=== PATIENT | male | born 1975 | race Two or more races ===

== ENCOUNTER 2025-03-14 18:12 | Emergency (ER) | payer MEDICAID, SELFPAY ==
[2025-03-14 18:34] VITALS: BP 131/99; PULSE 138; RESP 19; TEMP 36.9; O2SAT 96
--- NOTE | 2025-03-14 19:00 | PC.NURSE ---
PT WAS RELEASED FROM POLICE CUSTODY AND HE WAS TAKEN TO THE LOBBY WHERE HE CHOSE TO LEAVE.
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
--- NOTE | 2025-03-14 19:14 | EKG_ITS ---
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
[2025-03-14 19:15] VITALS: BMI 20.5
[2025-03-14 19:31] LABS: Basophils # (Auto) 0.1 Thou/mm3 (0.0-0.2); Basophils % (Auto) 1 % (0-2.5); Eosinophils % (Auto) 0 % (0-10); Hematocrit 45.2 % (41.0-53.0); Hemoglobin 16.1 g/dL (13.5-16.0); Immature Granulocytes % (Auto) 0 % (0-0); Immature Granulocytes Auto 0.01 Thou/mm3 (0.00-0.00); Lymphocytes # (Auto) 2.3 Thou/mm3 (1.0-4.8); Lymphocytes % (Auto) 34 % (10-50); Mean Corpuscular HGB Conc 35.6 g/dl (31.0-37.0); Mean Corpuscular Hemoglobin 30.9 pg (25.0-35.0); Mean Corpuscular Volume 87 fL (80-100); Monocytes # (Auto) 0.2 Thou/mm3 (0.0-0.8); Monocytes % (Auto) 3 % (0-12); Neutrophils # (Auto) 4.2 Thou/mm3 (1.8-7.7); Neutrophils % (Auto) 62 % (37-80); Nucleated Red Blood Cell % 0 /100 WBC (0); Platelet Count 292 Thou/mm3 (140-440); RDW Standard Deviation 43.5 fL (35.1-43.9); Red Blood Count 5.21 Miln/mm3 (4.50-5.90); White Blood Count 6.7 Thou/mm3 (3.8-10.6)
[2025-03-14 20:04] LABS: Alanine Aminotransferase 64 U/L (10-49); Albumin/Globulin Ratio 1.7 (1.2-2.2); Alkaline Phosphatase 128 U/L (46-116); Amylase 121 U/L (30-118); Anion Gap 14 (7-16); Aspartate Amino Transferase 94 U/L (0-34); BUN/Creatinine Ratio 13 Ratio (12-20); Bilirubin,Direct 0.3 mg/dL (0.0-0.3); Blood Urea Nitrogen 10 mg/dL (9-23); Calcium 8.5 mg/dL (8.3-10.6); Calcium (Corrected) 8.5 mg/dL (8.5-10.1); Carbon Dioxide 25.1 mMol/L (20.0-31.0); Chloride 101 mMol/L (98-107); Creatinine (Component) 0.8 mg/dL (0.6-1.3); Estimated Creatinine Clearance 86.9 mL/min (>60); Globulin 2.9 gm/dL (2.3-3.5); Glucose 116 mg/dL (74-106); Lipase 57 U/L (12-53); Magnesium 2.3 mg/dL (1.6-2.6); Osmolality,Calculated 279 (275-295); Potassium 4.1 mMol/L (3.4-5.1); Sodium 140 mMol/L (136-145); Total Protein 7.9 gm/dL (5.7-8.2); Troponin I < 0.020 ng/mL (0.0-0.045); eGFR > 60 See Note
== END 2025-03-14 19:15 | disposition left against medical advice (07) ==
PROVIDERS: Emergency Provider Emergency Medicine
DX: Z02.89 Encounter for other administrative examinations (principal); F10.129 Alcohol abuse with intoxication, unspecified; Y90.8 Blood alcohol level of 240 mg/100 ml or more
CPT/HCPCS: 36415; 80053; 80307; 80320; 82150; 82248; 83690; 83735; 84484; 85025; 93005; 99281; G0480

== ENCOUNTER 2025-05-29 20:46 | Emergency (ER) | payer MEDICAID, SELFPAY ==
[2025-05-29 20:47] VITALS: BP 141/91; PULSE 78; RESP 18; TEMP 36.9; O2SAT 98
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
[2025-05-29 21:18] VITALS: PULSE 92; O2SAT 96
[2025-05-30] MEDS: SODIUM CHLORIDE 0.9% 1000 ML 1,000 ML 999 ML IV (00:12)
[2025-05-30] MEDS: THIAMINE INJ 100 MG/ML VIAL 2 ML IVP (00:13)
[2025-05-30] MEDS: FOLIC ACID INJ 1 MG/0.2 ML IVP (00:13)
[2025-05-30 01:39] VITALS: BP 145/67; PULSE 78; RESP 18; TEMP 36.7
== END 2025-05-30 01:41 | disposition home or self-care (01) ==
DX: F10.129 Alcohol abuse with intoxication, unspecified (principal); R07.89 Other chest pain; Y09 Assault by unspecified means
CPT/HCPCS: 71110; 96374; 96375; 99283; J3411; J3490; J7030

== ENCOUNTER 2025-06-06 13:54 | Emergency (ER) | payer MEDICAID, SELFPAY ==
[2025-06-06 13:59] VITALS: BMI 25.4
[2025-06-06 14:04] VITALS: BP 144/96; PULSE 132; RESP 16; TEMP 37.1; O2SAT 96
--- NOTE | 2025-06-06 14:07 | EKG_ITS ---
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
--- NOTE | 2025-06-06 14:07 | XR_ITS ---
Examination: PA chest single view TECHNIQUE: Upright PA chest single view Date and time: June 06, 2025 1422 hours INDICATIONS: Chest pain today. FINDINGS: Normal heart size Lungs are clear. The osseous structures are intact. IMPRESSION: No active disease.
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
[2025-06-06 14:19] LABS: Collection Type, Urine Clean Catch; Squamous Epithelial Cell,Urine 0 /hpf (0-5)
[2025-06-06 14:37] LABS: Amphetamine/Methamp Scrn,U Negative (Negative); Barbiturate Screen,Urine Negative (Negative); Benzodiazepines Screen,Urine Negative (Negative); Benzoylecgonine Screen, Ur Negative (Negative); Fentanyl Screen,Urine Negative (Negative); Opiate Screen,Urine Negative (Negative); THC Screen,Urine Negative (Negative)
[2025-06-06 15:08] VITALS: BP 146/89; PULSE 114; RESP 18; O2SAT 98
[2025-06-06 15:18] LABS: Bilirubin,Urine Negative (Negative); Blood,Urine 1+ (Negative); Clarity,Urine Clear (Clear/Hazy); Color,Urine Lt-Yellow (Lt Yel-Yel); Culture Indicated,Urine Not Indicated; Glucose, Urine Negative (Negative); Ketones,Urine Negative (Negative); Leukocyte Esterase,Urine Negative (Negative); Nitrite,Urine Negative (Negative); PH,Urine 6.5 (5.0-7.0); Protein,Urine 2+ (Neg - Trace); RBC,Urine < 1 /hpf (0-3); Specific Gravity,Urine 1.010 (1.001-1.035); Urobilinogen,Urine Negative mg/dL (0.0-1.0); WBC,Urine < 1 /hpf (0-5)
[2025-06-06 15:24] VITALS: BP 137/90; PULSE 110; RESP 12; TEMP 36.8; O2SAT 96
[2025-06-06 15:43] LABS: Basophils # (Auto) 0.0 Thou/mm3 (0.0-0.2); Basophils % (Auto) 1 % (0-2.5); Eosinophils # (Auto) 0.0 Thou/mm3 (0.0-0.5); Eosinophils % (Auto) 0 % (0-10); Hematocrit 38.7 % (41.0-53.0); Hemoglobin 13.7 g/dL (13.5-16.0); Immature Granulocytes Auto 0.01 Thou/mm3 (0.00-0.00); Lymphocytes # (Auto) 0.8 Thou/mm3 (1.0-4.8); Lymphocytes % (Auto) 16 % (10-50); Mean Corpuscular HGB Conc 35.4 g/dl (31.0-37.0); Mean Corpuscular Hemoglobin 31.1 pg (25.0-35.0); Mean Corpuscular Volume 88 fL (80-100); Monocytes # (Auto) 0.3 Thou/mm3 (0.0-0.8); Monocytes % (Auto) 5 % (0-12); Neutrophils # (Auto) 4.2 Thou/mm3 (1.8-7.7); Neutrophils % (Auto) 78 % (37-80); Nucleated Red Blood Cell # 0.00 Thou/mm3 (0.00-0.00); Nucleated Red Blood Cell % 0 /100 WBC (0); Platelet Count 129 Thou/mm3 (140-440); RDW Standard Deviation 45.1 fL (35.1-43.9); Red Blood Count 4.40 Miln/mm3 (4.50-5.90); White Blood Count 5.3 Thou/mm3 (3.8-10.6)
[2025-06-06 15:55] LABS: B-Type Natriuretic Peptide < 20 pg/mL (0-100)
[2025-06-06 16:18] LABS: Alanine Aminotransferase 79 U/L (10-49); Albumin, Serum 4.6 gm/dL (3.5-5.0); Albumin/Globulin Ratio 1.6 (1.2-2.2); Alcohol, Blood Medical 382.5 mg/dL (0-10.0); Alkaline Phosphatase 112 U/L (46-116); Anion Gap 17 (7-16); Aspartate Amino Transferase 125 U/L (0-34); BUN/Creatinine Ratio 10 Ratio (12-20); Bilirubin,Total 1.2 mg/dL (0.3-1.2); Blood Urea Nitrogen 6 mg/dL (9-23); Calcium 9.0 mg/dL (8.3-10.6); Calcium (Corrected) 9.0 mg/dL (8.5-10.1); Carbon Dioxide 26.2 mMol/L (20.0-31.0); Chloride 95 mMol/L (98-107); Creatinine (Component) 0.6 mg/dL (0.6-1.3); Estimated Creatinine Clearance 111.4 mL/min (>60); Globulin 2.8 gm/dL (2.3-3.5); Glucose 120 mg/dL (74-106); Lipase 58 U/L (12-53); Magnesium 1.8 mg/dL (1.6-2.6); Osmolality,Calculated 274 (275-295); Potassium 3.3 mMol/L (3.4-5.1); Sodium 138 mMol/L (136-145); Total Protein 7.4 gm/dL (5.7-8.2); Troponin I 0.033 ng/mL (0.0-0.045); eGFR > 60 See Note
== END 2025-06-06 15:52 ==
PROVIDERS: Physician Assistant Medical; Emergency Provider Family Medicine
DX: Z02.89 Encounter for other administrative examinations (principal); F10.129 Alcohol abuse with intoxication, unspecified; Y90.9 Presence of alcohol in blood, level not specified
CPT/HCPCS: 36415; 71045; 80053; 80307; 80320; 81001; 83690; 83735; 83880; 84484; 85025; 93005; 99283; G0480

== ENCOUNTER 2025-06-20 15:14 | Inpatient (IN) | payer MEDICAID, SELFPAY ==
[2025-06-20 15:17] VITALS: BP 127/89; PULSE 115; RESP 20; TEMP 36.9; O2SAT 96
[2025-06-20 15:21] VITALS: PULSE 115; RESP 18; O2SAT 97
--- NOTE | 2025-06-20 15:21 | PC.NURSE ---
PT BROUGHT IN BY EMS FOR VOMITING AND ALCOHOL INTOXICATION. PT NOTED TO HAVE BRUISING TO LEFT SIDE UPPER ABD AND LEFT SHOULDER. PT STATES THAT HE WAS DRINKING ALOT OF ALCOHOL AND FELL. PT NOTED TO BE INTOXICATED AT THIS TIME. PT STATES THAT HE ONLY HAD 3 BEERS. PT PLACED ON CC MONITOR.
--- NOTE | 2025-06-20 16:04 | PD.EDNV ---
Nausea/Vomit./Diarrhea-RME/HPI General Chief complaint: Nausea/Vomiting/Diarrhea Stated complaint: VOMITING Time Seen by Provider: 06/20/25 15:55 Arrival date/time: 06/20/25 15:14 RME / HPI RME / HPI Narrative: 49 year old male with history of alcohol use disorder presents [facility] ED [facility] for evaluation of abdominal pain that is accompanied by nausea and vomiting. Patient additionally reports at baseline he drinks daily. However, in the last 5 days is drinking more than his usual. No other complaints reported. Related Data Previous Rx's ?Medication ?Instructions ?Recorded folic acid 1 mg tablet 1 mg PO QDAY #30 tabs 06/27/25 thiamine HCl (vitamin B1) 100 mg 100 mg PO QDAY #30 caps 06/27/25 capsule cyclobenzaprine 10 mg tablet 10 mg PO TID PRN muscle spasm 10 06/29/25 days #30 tab-caps ibuprofen 600 mg tablet 600 mg PO Q6H #30 tabs 06/29/25 Allergies Allergy/AdvReac Type Severity Reaction Status Date / Time No Known Allergies Allergy Unverified 06/21/25 09:14 Review of Systems Review of Systems Systems Reviewed: All systems reviewed, normal except as documented Past Medical History Past Medical History CARDIAC: Negative Congestive Heart Failure RESPIRATORY: Negative Chronic Obstructive Pulmonary Disease (COPD) GENITOURINARY: Negative Renal Disease ENDOCRINE: Negative Diabetes Mellitus Type 1 or Diabetes Mellitus Type 2 Social History SMOKING STATUS: Never smoker ED Exam Narrative Physical exam: GENERAL APPEARANCE: well-developed, well-nourished, appears intoxicated, there is food vomit on the front of his clothing, no evidence of blood or coffee grounds HEENT: Normocephalic, atraumatic; pupils equal, round, reactive to light; EOMI; mucous membranes pink, moist; oropharynx clear NECK: Supple LUNGS: CTABL; no wheezes, no rales, no rhonchi HEART: Regular rate, regular rhythm; normal S1, S2; no murmurs ABDOMEN: non distended; normal BS; soft, no tenderness, no guarding, no rebound; no masses, no organomegaly, no hernia BACK: no CVA tenderness EXTREMITIES: atraumatic; no edema NEUROLOGIC: awake; alert and oriented; cranial nerves II-XII grossly intact PSYCHIATRIC: appropriate mood and affect SKIN: warm, dry, normal color; no rashes Course Quality Measures none Orders Category Date Time Status Patient Condition Routine Admission 06/21/25 09:[address] in Observation Status Routine Admission 06/21/25 09:08 Active 24 HR Medical Restraints Q2HR Care 06/23/25 18:06 Completed Activity as Tolerated Routine Care 06/21/25 09:09 Ordered Psychologist Developmental Q4H START 00 Care 06/20/25 16:11 Completed Continuous Pulse Oximetry NOW Care 06/21/25 09:07 Completed EKG (ED ONLY) *Do not use* NOW Care 06/20/25 16:11 Completed Miscellaneous Nursing Order NOW Care 06/23/25 19:09 Completed Notify provider NEEDED Care 06/21/25 09:07 Completed SCD [Sequential Compression Device] QSHIFT Care 06/23/25 07:25 Completed Saline [Insert IV] NOW Care 06/20/25 18:44 Completed Seizure precautions NEEDED Care 06/21/25 09:09 Completed Referral Physical Therapy Routine Cons 06/24/25 16:20 Completed Referral Wound Care Routine Cons 06/21/25 14:53 Active Diet Clear Liquid Diet 06/21/25 Lunch Completed Diet Regular Diet 06/22/25 Lunch Active EKG (ED Only) Stat Exams 06/20/25 16:11 Draft Alcohol, Blood Medical Stat Lab 06/20/25 16:34 Completed Alcohol, Blood Medical Stat Lab 06/20/25 19:30 Completed Alcohol, Blood Medical Stat Lab 06/21/25 05:55 Completed Amylase Stat Lab 06/20/25 19:30 Completed BMP [Basic Metabolic Panel] Stat Lab 06/20/25 19:30 Completed BMP [Basic Metabolic Panel] Stat Lab 06/21/25 05:55 Completed Bilirubin,Total Stat Lab 06/20/25 19:30 Completed CBC AM DRAW Lab 06/22/25 04:31 Completed CBC AM DRAW Lab 06/23/25 05:00 Completed CBC AM DRAW Lab 06/24/25 04:56 Completed CBC AM DRAW Lab 06/25/25 05:59 Completed CBC AM DRAW Lab 06/26/25 05:20 Completed CBC AM DRAW Lab 06/27/25 05:09 Completed CBC Stat Lab 06/20/25 16:34 Completed CMP [Comprehensive Metabolic Panel] AM DRAW Lab 06/25/25 05:59 Completed CMP [Comprehensive Metabolic Panel] AM DRAW Lab 06/26/25 05:20 Completed CMP [Comprehensive Metabolic Panel] AM DRAW Lab 06/27/25 05:09 Completed Comprehensive Metabolic Panel AM DRAW Lab 06/22/25 04:31 Completed Comprehensive Metabolic Panel AM DRAW Lab 06/23/25 05:00 Completed Comprehensive Metabolic Panel AM DRAW Lab 06/24/25 04:56 Completed Comprehensive Metabolic Panel Stat Lab 06/20/25 16:34 Completed Drug Screen,Urine Stat Lab 06/20/25 18:02 Completed Ferritin Routine Lab 06/23/25 05:00 Completed Iron Panel Routine Lab 06/22/25 04:31 Completed Lipase Stat Lab 06/20/25 16:34 Completed Lipid Panel AM DRAW Lab 06/22/25 04:31 Completed Magnesium AM DRAW Lab 06/22/25 04:31 Completed Magnesium AM DRAW Lab 06/23/25 05:00 Completed Magnesium AM DRAW Lab 06/24/25 04:56 Completed Magnesium AM DRAW Lab 06/25/25 05:59 Completed Magnesium AM DRAW Lab 06/26/25 05:20 Completed Magnesium AM DRAW Lab 06/27/25 05:09 Completed Magnesium Stat Lab 06/20/25 16:34 Completed PT [Prothrombin Time with INR] Stat Lab 06/20/25 19:30 Completed PTT [Partial Thromboplastin Time] Stat Lab 06/20/25 19:30 Completed Phosphorous AM DRAW Lab 06/22/25 04:31 Completed Phosphorous AM DRAW Lab 06/23/25 05:00 Completed Phosphorous AM DRAW Lab 06/24/25 04:56 Completed Phosphorous AM DRAW Lab 06/25/25 05:59 Completed Phosphorous AM DRAW Lab 06/26/25 05:20 Completed Phosphorous AM DRAW Lab 06/27/25 05:09 Completed Renal Function Panel Routine Lab 06/21/25 18:30 Completed Renal Function Panel Routine Lab 06/22/25 19:37 Completed Renal Function Panel Routine Lab 06/23/25 13:50 Completed Renal Function Panel Routine Lab 06/24/25 17:00 Completed Renal Function Panel Urgent Lab 06/21/25 09:53 Completed Renal Function Panel Urgent Lab 06/21/25 14:04 Completed Troponin I Stat Lab 06/20/25 16:34 Completed UA, C/S IF [Urinalysis, C/S if Indicated] Stat Lab 06/20/25 18:02 Completed Vitamin B12 Routine Lab 06/22/25 04:31 Completed Acetaminophen Tab [Tylenol Tab] Med 06/23/25 07:28 Discontinued 325 mg PO X1 ONE Balsam [place] Oil [Venelex Oint] Med 06/21/25 21:00 Discontinued See Dose Instructions TOP BID Diazepam Inj [Valium Inj] Med 06/23/25 19:05 Discontinued 10 mg IVP Q2HR PRN CIWA SCORE 15-19 CIWA SCORE 15-19 Diazepam Inj [Valium Inj] Med 06/20/25 18:45 Discontinued 10 mg IVP X1 ONE Diazepam Inj [Valium Inj] Med 06/21/25 05:14 Discontinued 10 mg IVP X1 ONE Diazepam Inj [Valium Inj] Med 06/23/25 19:11 Discontinued 20 mg IVP Q2H PRN Diazepam Inj [Valium Inj] Med 06/21/25 09:07 Discontinued 5 mg IVP Q2HR PRN Diazepam Inj [Valium Inj] Med 06/21/25 09:15 Discontinued 5 mg IVP Q2HR PRN Diazepam Inj [Valium Inj] Med 06/22/25 17:04 Discontinued 5 mg IVP Q2HR PRN CIWA SCORE 15-19 CIWA SCORE 15-19 Heparin Inj Med 06/21/25 21:00 Discontinued 5,000 unit SC Q12HR Heparin Inj Med 06/21/25 14:00 Discontinued 5,000 unit SC Q8HR Heparin Inj Med 06/24/25 07:30 Discontinued 5,000 unit SC Q8HR KCL 10% Liq UDC 15 ML Med 06/20/25 18:44 Discontinued 40 meq PO X1 ONE KCL 10% Liq UDC 15 ML Med 06/20/25 22:44 Discontinued 40 meq PO X1 ONE LORazepam [Ativan] Med 06/21/25 09:07 Discontinued 0.5 mg PO Q4HR PRN LORazepam [Ativan] Med 06/21/25 09:07 Discontinued 1 mg PO Q4HR PRN LORazepam [Ativan] Med 06/21/25 09:07 Discontinued 2 mg PO Q4HR PRN LORazepam [Ativan] Med 06/22/25 17:04 Discontinued 2 mg PO Q4HR PRN Magnesium Sulfate 2 GM Ivpb [Magnesium Sulfate Ivpb] Med 06/24/25 07:21 Discontinued 2 gm in 50 ml IV X1 Magnesium Sulfate 4 GM Ivpb [Magnesium Sulfate Ivpb] Med 06/22/25 07:46 Discontinued 4 gm in 50 ml IV X1 Magnesium Sulfate 4 GM Ivpb [Magnesium Sulfate Ivpb] Med 06/23/25 07:45 Discontinued 4 gm in 50 ml IV X1 Magnesium Sulfate 4 GM Ivpb [Magnesium Sulfate Ivpb] Med 06/25/25 08:13 Discontinued 4 gm in 50 ml IV X1 Melatonin Med 06/21/25 21:00 Discontinued 3 mg PO HS Melatonin Med 06/23/25 21:00 Discontinued 6 mg PO HS Metoclopramide Inj [Reglan Inj] Med 06/21/25 09:07 Discontinued 10 mg IVP Q6H PRN Morphine Inj Med 06/20/25 16:12 Discontinued 5 mg IVP X1 ONE Multivitamin. Med 06/22/25 09:00 Discontinued 1 tab PO QDAY Ondansetron Inj [Zofran Inj] Med 06/20/25 16:12 Discontinued 4 mg IVP X1 ONE PHENobarbital Inj 130 mg Med 06/24/25 07:30 Discontinued Sodium Chloride 0.9% Flush [NS Flush] 12 ml IVP Q6HR PHENobarbital Inj 130 mg Med 06/25/25 14:00 Discontinued Sodium Chloride 0.9% Flush [NS Flush] 12 ml IVP TID PHENobarbital Inj 550 mg Med 06/23/25 19:15 Discontinued Sodium Chloride 0.9% [Ns] 50 ml IV X1 PHENobarbital Inj 550 mg Med 06/23/25 19:07 Discontinued Sodium Chloride 0.9% Flush [NS Flush] 250 ml IV X1 POTASSIUM CHL 10 mEq IVPB [Kcl Ivpb] Med 06/20/25 17:50 Discontinued 10 meq in 100 ml IV Q1H POTASSIUM CHL 10 mEq IVPB [Kcl Ivpb] Med 06/24/25 07:22 Discontinued 10 meq in 100 ml IV Q1H Pantoprazole Inj [Protonix Inj] Med 06/25/25 09:00 Discontinued 40 mg IVP QDAY Pantoprazole Inj [Protonix Inj] Med 06/20/25 16:13 Discontinued 80 mg IVP X1 ONE Potassium Chloride [K-Dur] Med 06/22/25 07:47 Discontinued 20 meq PO X1 ONE Potassium Chloride [K-Dur] Med 06/21/25 15:52 Discontinued 40 meq PO X1 ONE Potassium Chloride [K-Dur] Med 06/23/25 07:26 Discontinued 40 meq PO X1 ONE Ringers Lactated 1000 ml [Lactated Ringers] 1,000 ml Med 06/20/25 18:45 Discontinued IV 1,000 mls/hr Ringers Lactated 1000 ml [Lactated Ringers] 1,000 ml Med 06/20/25 21:38 Discontinued IV 1,000 mls/hr Ringers Lactated 1000 ml [Lactated Ringers] 1,000 ml Med 06/21/25 00:46 Discontinued IV 200 mls/hr Ringers Lactated 1000 ml [Lactated Ringers] 1,000 ml Med 06/21/25 09:15 Discontinued IV 75 mls/hr Sodium Chloride 0.45 % [Ns 0.45%] 1,000 ml Med 06/24/25 07:21 Discontinued Pot Chl Additive [KCl Additive] 40 meq IV 100 mls/hr Sodium Chloride 0.9% 1000 ml [Ns] 1,000 ml Med 06/22/25 07:45 Discontinued IV 100 mls/hr Sodium Chloride 0.9% 1000 ml [Ns] 1,000 ml Med 06/23/25 07:27 Discontinued IV 100 mls/hr Sodium Chloride 0.9% 1000 ml [Ns] 1,000 ml Med 06/20/25 16:12 Discontinued IV 999 mls/hr Thiamine Inj [Vitamin B-1 Inj] Med 06/20/25 18:44 Discontinued 100 mg IVP X1 ONE Thiamine Inj [Vitamin B-1 Inj] 500 mg Med 06/23/25 22:00 Discontinued Sodium Chloride 0.9% [Ns] 100 ml IV TID Thiamine [Vitamin B-1] Med 06/22/25 09:00 Discontinued 100 mg PO QDAY chlordiazePOXIDE HCl [Librium] Med 06/22/25 09:00 Discontinued 25 mg PO Q6HR chlordiazePOXIDE HCl [Librium] Med 06/22/25 14:00 Discontinued 25 mg PO TID Code Status Routine Oth 06/21/25 09:07 Completed Late Tray Request Routine Oth 06/21/25 13:13 Active EKG (RT) Urgent RT 06/22/25 12:27 Draft [facility] Equity Referral - Knowledge Deficit Routine SS 06/21/25 14:48 Active Transfer Order Routine Transfer 06/23/25 18:39 Completed Transfer Order Routine Transfer 06/24/25 09:58 Completed Vital Signs Vital signs: Vital Signs Temperature 98.5 F 06/20/25 15:17 Pulse Rate 115 H 06/20/25 15:17 Respiratory Rate 20 06/20/25 15:17 Blood Pressure 127/89 H 06/20/25 15:17 Pulse Oximetry (%) 96 06/20/25 15:17 Oxygen Delivery Method Room Air 06/20/25 15:17 Pulse ox is 96% on room air which is adequate. Nausea/Vomiting/Diarrhea MDM Narrative MDM Narrative:: Juliet Yost am scribing for and in the presence of Dr. Morales. 1800: Signed out to Dr. Rees pending reassessment and final disposition. Patient data External records reviewed:: EMS form Clinical information provided by:: patient and EMS Social determinants that could affect healthcare access:: alcohol use Patient has the following chronic illnesses:: Alcohol use disorder How is presenting disease/condition affected by chronic disease/condition?: exacerbated by Evaluation data The following diagnostics were reviewed and interpreted by me:: lab results and EKG tracing(s) (NSR, rate 96, no acute ischemic changes ) Lab and/or radiology exams considered but not ordered:: None Interpretation Summary: As noted above Medications / Prescriptions Medications / Prescriptions considered but not ordered:: None Medication administrations:: Medication Administration History Discontinued Medications Acetaminophen (Acetaminophen 325 Mg Tablet) 325 mg PO X1 ONE Stop: 06/23/25 07:29 Last Admin: 06/23/25 09:16 Dose: 325 mg Documented By: CLIF Balsam [place] Oil (Balsam [place] Oil (Venelex) 60 Gm Tube) 0 gm TOP BID VIVIANA Stop: 07/21/25 20:59 Last Admin: 06/27/25 08:46 Dose: 1 applicatio Documented By: Admin: 06/26/25 20:19 Dose: 1 applicatio Documented By: Admin: 06/26/25 08:26 Dose: 1 applicatio Documented By: Admin: 06/25/25 20:55 Dose: 1 applicatio Documented By: Admin: 06/25/25 14:13 Dose: 1 applicatio Documented By: Admin: 06/24/25 20:10 Dose: 1 applicatio Documented By: Admin: 06/24/25 08:02 Dose: 1 applicatio Documented By: Admin: 06/23/25 21:54 Dose: 1 applicatio Documented By: Admin: 06/23/25 10:33 Dose: 1 applicatio Documented By: Admin: 06/22/25 20:45 Dose: 1 applicatio Documented By: Admin: 06/22/25 08:00 Dose: 1 applicatio Documented By: Admin: 06/21/25 20:15 Dose: 1 applicatio Documented By: TED Chlordiazepoxide HCl (Chlordiazepoxide Hcl 25 Mg Capsule) 25 mg PO Q6HR [facility]NA Stop: 06/27/25 08:59 Last Admin: 06/22/25 09:57 Dose: 25 mg Documented By: MR Chlordiazepoxide HCl (Chlordiazepoxide Hcl 25 Mg Capsule) 25 mg PO TID VIVIANA Stop: 06/27/25 13:59 Last Admin: 06/23/25 15:33 Dose: 25 mg Documented By: Admin: 06/23/25 05:33 Dose: 25 mg Documented By: Admin: 06/22/25 20:45 Dose: 25 mg Documented By: Admin: 06/22/25 14:00 Dose: 25 mg Documented By: MR Phenobarbital Sodium 550 mg/ (Sodium Chloride 250 ml) 0 mg IV X1 ONE Stop: 06/23/25 19:08 Last Admin: 06/23/25 20:31 Dose: Not Given Documented By: VALDEMAR Non-Admin Reason: Discontinued Phenobarbital Sodium 130 mg/ (Sodium Chloride 12 ml) 0 mg IVP Q6HR [facility]NA Stop: 07/08/25 07:29 Last Admin: 06/25/25 06:20 Dose: 130 mg Documented By: Admin: 06/24/25 23:27 Dose: 130 mg Documented By: Admin: 06/24/25 18:37 Dose: 130 mg Documented By: SC Admin: 06/24/25 13:31 Dose: 130 mg Documented By: SC Admin: 06/24/25 07:46 Dose: 130 mg Documented By: DESTINEY Phenobarbital Sodium 130 mg/ (Sodium Chloride 12 ml) 0 mg IVP TID VIVIANA Stop: 07/09/25 13:59 Last Admin: 06/26/25 05:47 Dose: Not Given Documented By: BILL Non-Admin Reason: Other, see note Comments: CIWA Score is currently a 3 and Patient is awake alert and easily arousable; MD Sam notified, 0600 dose held Admin: 06/25/25 22:17 Dose: 130 mg Documented By: Admin: 06/25/25 15:24 Dose: Not Given Documented By: MGD Non-Admin Reason: lethargic Phenobarbital Sodium 130 mg/ (Sodium Chloride 12 ml) 0 mg IVP X1 ONE Stop: 06/25/25 15:44 Last Admin: 06/25/25 19:01 Dose: Not Given Documented By: MGD Non-Admin Reason: lethargic Phenobarbital Sodium 130 mg/ (Sodium Chloride 12 ml) 0 mg IVP BID VIVIANA Stop: 07/10/25 08:59 Last Admin: 06/26/25 20:15 Dose: 130 mg Documented By: Admin: 06/26/25 08:11 Dose: 130 mg Documented By: NANI Diazepam (Diazepam Inj 5 Mg/Ml Vial 2 Ml) 10 mg IVP X1 ONE Stop: 06/20/25 18:46 Last Admin: 06/20/25 22:36 Dose: Not Given Documented By: WO Non-Admin Reason: Patient Asleep Diazepam (Diazepam Inj 5 Mg/Ml Vial 2 Ml) 10 mg IVP X1 ONE Stop: 06/21/25 05:15 Last Admin: 06/21/25 05:51 Dose: 10 mg Documented By: ANIKA Diazepam (Diazepam Inj 5 Mg/Ml Vial 2 Ml) 5 mg IVP Q2HR PRN PRN Reason: CIWA SCORE 16-19 Stop: 06/26/25 09:06 Diazepam (Diazepam Inj 5 Mg/Ml Vial 2 Ml) 5 mg IVP Q2HR PRN PRN Reason: CIWA SCORE 16-19 Stop: 06/26/25 09:06 Diazepam (Diazepam Inj 5 Mg/Ml Vial 2 Ml) 5 mg IVP Q2HR PRN PRN Reason: CIWA SCORE 15-19 Stop: 06/26/25 09:06 Last Admin: 06/23/25 16:16 Dose: 5 mg Documented By: Admin: 06/23/25 05:33 Dose: 5 mg Documented By: Admin: 06/23/25 02:00 Dose: 5 mg Documented By: Admin: 06/22/25 23:51 Dose: 5 mg Documented By: Admin: 06/22/25 19:19 Dose: 5 mg Documented By: MORALES Comments: TIERNEY 15 Admin: 06/22/25 17:17 Dose: 5 mg Documented By: Diazepam (Diazepam Inj 5 Mg/Ml Vial 2 Ml) 10 mg IVP Q2HR PRN PRN Reason: CIWA SCORE 15-19 Stop: 06/26/25 09:06 Diazepam (Diazepam Inj 5 Mg/Ml Vial 2 Ml) 20 mg IVP Q2H PRN PRN Reason: CIWA >20 Stop: 06/28/25 19:10 Last Admin: 06/24/25 08:24 Dose: 20 mg Documented By: Admin: 06/24/25 01:08 Dose: 20 mg Documented By: Admin: 06/23/25 22:40 Dose: 20 mg Documented By: Admin: 06/23/25 20:37 Dose: 20 mg Documented By: VALDEMAR Heparin Sodium (Porcine) (Heparin Sod Inj 5000 Unit/Ml Vial) 5,000 unit SC Q8HR [facility] Stop: 07/05/25 13:59 Last Admin: 06/24/25 06:56 Dose: Not Given Documented By: DESTINEY Non-Admin Reason: Discontinued Heparin Sodium (Porcine) (Heparin Sod Inj 5000 Unit/Ml Vial) 5,000 unit SC Q12HR [facility] Stop: 07/05/25 20:59 Last Admin: 06/23/25 21:52 Dose: 5,000 unit Documented By: VALDEMAR Co-signed By: Admin: 06/23/25 08:07 Dose: 5,000 unit Documented By: PP Co-signed By: ISABEL Admin: 06/22/25 20:45 Dose: Not Given Documented By: MORALES Non-Admin Reason: Patient Refused Admin: 06/22/25 08:00 Dose: 5,000 unit Documented By: Co-signed By: Admin: 06/21/25 20:15 Dose: 5,000 unit Documented By: TED Co-signed By: MORALES Heparin Sodium (Porcine) (Heparin Sod Inj 5000 Unit/Ml Vial) 5,000 unit SC Q8HR [facility] Stop: 07/08/25 07:29 Last Admin: 06/26/25 05:52 Dose: 5,000 unit Documented By: BILL Co-signed By: FELIZ Admin: 06/25/25 22:18 Dose: 5,000 unit Documented By: BILL Co-signed By: FELIZ Admin: 06/25/25 14:09 Dose: 5,000 unit Documented By: EDITA Co-signed By: XIYAA Admin: 06/25/25 06:19 Dose: 5,000 unit Documented By: BILL Co-signed By: SD Admin: 06/24/25 21:25 Dose: 5,000 unit Documented By: HV Co-signed By: IG Admin: 06/24/25 13:45 Dose: 5,000 unit Documented By: SC Co-signed By: RIP Admin: 06/24/25 07:40 Dose: 5,000 unit Documented By: DESTINEY Co-signed By: (2) Heparin Sodium (Porcine) (Heparin Sod Inj 5000 Unit/Ml Vial) 5,000 unit SC Q12HR [facility] Stop: 07/10/25 20:59 Last Admin: 06/27/25 08:45 Dose: 5,000 unit Documented By: RASHEED Co-signed By: Admin: 06/26/25 20:15 Dose: 5,000 unit Documented By: ANNA Co-signed By: MELINA Sodium Chloride (Ns) 1,000 mls @ 999 mls/hr IV .Q1H1M ONE Stop: 06/20/25 17:12 Last Infusion: 06/20/25 19:00 Dose: Infused Documented By: Admin: 06/20/25 17:04 Dose: 999 mls/hr Documented By: ED Potassium Chloride (Kcl Ivpb) 10 meq in 100 mls @ 100 mls/hr IV Q1H [facility] Stop: 06/20/25 21:49 Last Infusion: 06/20/25 23:19 Dose: Infused Documented By: Admin: 06/20/25 22:10 Dose: 100 mls/hr Documented By: Infusion: 06/20/25 22:08 Dose: Infused Documented By: Admin: 06/20/25 21:08 Dose: 100 mls/hr Documented By: Infusion: 06/20/25 21:08 Dose: Infused Documented By: Admin: 06/20/25 20:01 Dose: 80 mls/hr Documented By: Infusion: 06/20/25 19:59 Dose: Infused Documented By: Admin: 06/20/25 18:44 Dose: 80 mls/hr Documented By: MARINO Lactated Ringer's (Lactated Ringers) 1,000 mls @ 1,000 mls/hr IV .Q1H ONE Stop: 06/20/25 19:44 Last Infusion: 06/20/25 20:12 Dose: Infused Documented By: Admin: 06/20/25 19:12 Dose: 1,000 mls/hr Documented By: LILIAM Lactated Ringer's (Lactated Ringers) 1,000 mls @ 1,000 mls/hr IV .Q1H ONE Stop: 06/20/25 22:37 Last Infusion: 06/20/25 23:15 Dose: Infused Documented By: Admin: 06/20/25 22:11 Dose: 1,000 mls/hr Documented By: LILIAM Lactated Ringer's (Lactated Ringers) 1,000 mls @ 200 mls/hr IV .Q5H ONE Stop: 06/21/25 05:45 Last Infusion: 06/21/25 05:53 Dose: Infused Documented By: Admin: 06/21/25 00:53 Dose: 200 mls/hr Documented By: LILIAM Lactated Ringer's (Lactated Ringers) 1,000 mls @ 75 mls/hr IV .[id number] [facility] Stop: 07/21/25 09:14 Last Admin: 06/23/25 01:53 Dose: 75 mls/hr Documented By: Infusion: 06/23/25 01:53 Dose: Infused Documented By: Admin: 06/22/25 12:50 Dose: 75 mls/hr Documented By: Infusion: 06/22/25 12:50 Dose: Infused Documented By: Admin: 06/21/25 23:30 Dose: 75 mls/hr Documented By: Infusion: 06/21/25 22:42 Dose: Infused Documented By: Admin: 06/21/25 09:22 Dose: 75 mls/hr Documented By: LEONORA Sodium Chloride (Ns) 1,000 mls @ 100 mls/hr IV .Q10H [facility] Stop: 07/22/25 07:44 Last Admin: 06/23/25 22:43 Dose: Not Given Documented By: VALDEMAR Non-Admin Reason: Discontinued Magnesium Sulfate (Magnesium Sulfate Ivpb) 4 gm in 50 mls @ 12.5 mls/hr IV X1 ONE Stop: 06/22/25 11:45 Last Admin: 06/22/25 07:57 Dose: 12.5 mls/hr Documented By: Magnesium Sulfate (Magnesium Sulfate Ivpb) 4 gm in 50 mls @ 12.5 mls/hr IV X1 ONE Stop: 06/23/25 11:44 Last Admin: 06/23/25 08:08 Dose: 12.5 mls/hr Documented By: CLIF Sodium Chloride (Ns) 1,000 mls @ 100 mls/hr IV .Q10H [facility] Stop: 07/23/25 07:26 Last Admin: 06/24/25 04:30 Dose: 100 mls/hr Documented By: Infusion: 06/24/25 04:30 Dose: Infused Documented By: Admin: 06/23/25 19:53 Dose: 100 mls/hr Documented By: Infusion: 06/23/25 19:53 Dose: Infused Documented By: Admin: 06/23/25 10:33 Dose: 100 mls/hr Documented By: CLIF Thiamine HCl 500 mg/ Sodium (Chloride) 105 mls @ 210 mls/hr IV TID VIVIANA Stop: 07/23/25 21:59 Last Admin: 06/26/25 05:52 Dose: 210 mls/hr Documented By: Infusion: 06/25/25 22:46 Dose: Infused Documented By: Admin: 06/25/25 22:16 Dose: 210 mls/hr Documented By: Infusion: 06/25/25 14:39 Dose: Infused Documented By: Admin: 06/25/25 14:09 Dose: 210 mls/hr Documented By: Infusion: 06/25/25 06:50 Dose: Infused Documented By: Admin: 06/25/25 06:20 Dose: 210 mls/hr Documented By: Infusion: 06/24/25 21:55 Dose: Infused Documented By: Admin: 06/24/25 21:25 Dose: 210 mls/hr Documented By: Infusion: 06/24/25 14:15 Dose: Infused Documented By: Admin: 06/24/25 13:45 Dose: 210 mls/hr Documented By: SC Infusion: 06/24/25 06:15 Dose: Infused Documented By: SC Admin: 06/24/25 05:45 Dose: 210 mls/hr Documented By: Infusion: 06/23/25 22:24 Dose: Infused Documented By: Admin: 06/23/25 21:54 Dose: 210 mls/hr Documented By: VALDEMAR Phenobarbital Sodium 550 mg/ (Sodium Chloride) 54.2308 mls @ 325.385 mls/hr IV X1 ONE Stop: 06/23/25 19:24 Last Admin: 06/23/25 19:54 Dose: 325.385 mls/hr Documented By: VALDEMAR Magnesium Sulfate (Magnesium Sulfate Ivpb) 2 gm in 50 mls @ 25 mls/hr IV X1 ONE Stop: 06/24/25 09:20 Last Admin: 06/24/25 07:42 Dose: 25 mls/hr Documented By: DESTINEY Potassium Chloride 40 meq/ (Sodium Chloride) 1,020 mls @ 100 mls/hr IV .[id number] [facility] Stop: 07/24/25 07:20 Last Admin: 06/26/25 12:27 Dose: 100 mls/hr Documented By: Infusion: 06/26/25 12:27 Dose: Infused Documented By: Admin: 06/26/25 02:45 Dose: 100 mls/hr Documented By: Infusion: 06/26/25 02:06 Dose: Infused Documented By: Admin: 06/25/25 15:54 Dose: 100 mls/hr Documented By: MGAngela Infusion: 06/25/25 15:54 Dose: Infused Documented By: Admin: 06/25/25 07:17 Dose: 100 mls/hr Documented By: Infusion: 06/25/25 06:22 Dose: Infused Documented By: Admin: 06/24/25 20:10 Dose: 100 mls/hr Documented By: Infusion: 06/24/25 19:20 Dose: Infused Documented By: Admin: 06/24/25 09:08 Dose: 100 mls/hr Documented By: DESTINEY Comments: Given late 2/T unavailability. Potassium Chloride (Kcl Ivpb) 10 meq in 100 mls @ 100 mls/hr IV Q1H VIVIANA Stop: 06/24/25 11:21 Last Admin: 06/24/25 10:52 Dose: 100 mls/hr Documented By: Infusion: 06/24/25 10:52 Dose: Infused Documented By: Admin: 06/24/25 09:50 Dose: 100 mls/hr Documented By: Infusion: 06/24/25 09:50 Dose: Infused Documented By: Admin: 06/24/25 08:46 Dose: 100 mls/hr Documented By: Infusion: 06/24/25 08:46 Dose: Infused Documented By: Admin: 06/24/25 07:42 Dose: 100 mls/hr Documented By: DESTINEY Magnesium Sulfate (Magnesium Sulfate Ivpb) 4 gm in 50 mls @ 12.5 mls/hr IV X1 ONE Stop: 06/25/25 12:12 Last Admin: 06/25/25 10:43 Dose: 12.5 mls/hr Documented By: EDITA Magnesium Sulfate (Magnesium Sulfate Ivpb) 4 gm in 50 mls @ 12.5 mls/hr IV X1 ONE Stop: 06/26/25 11:42 Last Admin: 06/26/25 08:12 Dose: 12.5 mls/hr Documented By: NANI Thiamine HCl 500 mg/ Sodium (Chloride) 105 mls @ 210 mls/hr IV TID [facility] Stop: 07/23/25 21:59 Last Admin: 06/27/25 05:05 Dose: 210 mls/hr Documented By: Infusion: 06/26/25 21:42 Dose: Infused Documented By: Admin: 06/26/25 21:12 Dose: 210 mls/hr Documented By: Infusion: 06/26/25 15:10 Dose: Infused Documented By: Admin: 06/26/25 14:40 Dose: 210 mls/hr Documented By: NANI Lactated Ringer's (Lactated Ringers) 1,000 mls @ 85 mls/hr IV .[id number] [facility] Stop: 06/27/25 14:12 Last Admin: 06/27/25 03:47 Dose: 85 mls/hr Documented By: Infusion: 06/27/25 03:20 Dose: Infused Documented By: Admin: 06/26/25 15:34 Dose: 85 mls/hr Documented By: NANI Magnesium Sulfate (Magnesium Sulfate Ivpb) 2 gm in 50 mls @ 25 mls/hr IV X1 ONE Stop: 06/27/25 09:52 Last Admin: 06/27/25 08:45 Dose: 25 mls/hr Documented By: RASHEED Lorazepam (Lorazepam 0.5 Mg Tablet) 0.5 mg PO Q4HR PRN PRN Reason: CIWA Score 2-6 Stop: 06/26/25 09:06 Last Admin: 06/22/25 00:35 Dose: 0.5 mg Documented By: TED Lorazepam (Lorazepam 0.5 Mg Tablet) 1 mg PO Q4HR PRN PRN Reason: CIWA SCORE 7-11 Stop: 06/26/25 09:06 Last Admin: 06/23/25 09:16 Dose: 1 mg Documented By: Admin: 06/22/25 21:48 Dose: 1 mg Documented By: Admin: 06/22/25 12:25 Dose: 1 mg Documented By: Admin: 06/21/25 20:15 Dose: 1 mg Documented By: Admin: 06/21/25 14:42 Dose: 1 mg Documented By: Admin: 06/21/25 10:47 Dose: 1 mg Documented By: LEONORA Comments: TIERNEY 9 Lorazepam (Lorazepam 0.5 Mg Tablet) 2 mg PO Q4HR PRN PRN Reason: CIWA SCORE 12-15 Stop: 06/26/25 09:06 Last Admin: 06/22/25 15:27 Dose: 2 mg Documented By: Admin: 06/22/25 08:48 Dose: 2 mg Documented By: Lorazepam (Lorazepam 0.5 Mg Tablet) 2 mg PO Q4HR PRN PRN Reason: CIWA SCORE 12-14 Stop: 06/26/25 09:06 Last Admin: 06/23/25 12:37 Dose: 2 mg Documented By: Admin: 06/23/25 03:56 Dose: 2 mg Documented By: MORALES Melatonin (Melatonin 3 Mg Tablet) 3 mg PO HS VIVIANA Stop: 07/21/25 20:59 Last Admin: 06/22/25 20:45 Dose: 3 mg Documented By: Admin: 06/21/25 20:15 Dose: 3 mg Documented By: TED Melatonin (Melatonin 3 Mg Tablet) 6 mg PO HS VIVIANA Stop: 07/23/25 20:59 Metoclopramide HCl (Metoclopramide Inj 5 Mg/Ml Vial 2 Ml) 10 mg IVP Q6H PRN; Protocol PRN Reason: NAUSEA OR VOMITING Stop: 07/21/25 09:06 Last Admin: 06/23/25 09:16 Dose: 10 mg Documented By: Admin: 06/22/25 14:00 Dose: 10 mg Documented By: Admin: 06/21/25 20:21 Dose: 10 mg Documented By: Admin: 06/21/25 10:48 Dose: 10 mg Documented By: LEONORA Morphine Sulfate (Morphine Sulf Inj 10 Mg/Ml Vial) 5 mg IVP X1 ONE Stop: 06/20/25 16:13 Last Admin: 06/20/25 16:20 Dose: Not Given Documented By: DO Non-Admin Reason: Cancelled by Provider Multivitamins (Multivitamins Tablet) 1 tab PO QDAY VIVIANA Stop: 07/22/25 08:59 Last Admin: 06/27/25 08:45 Dose: 1 tab Documented By: Admin: 06/26/25 08:12 Dose: 1 tab Documented By: Admin: 06/25/25 08:12 Dose: 1 tab Documented By: Admin: 06/24/25 08:26 Dose: 1 tab Documented By: Admin: 06/23/25 08:08 Dose: 1 tab Documented By: Admin: 06/22/25 08:00 Dose: 1 tab Documented By: Ondansetron HCl (Ondansetron Inj 2 Mg/Ml Inj 2 Ml) 4 mg IVP X1 ONE Stop: 06/20/25 16:13 Last Admin: 06/20/25 16:59 Dose: 4 mg Documented By: CRYSTAL Pantoprazole Sodium (Pantoprazole Inj 40 Mg Vial) 80 mg IVP X1 ONE Stop: 06/20/25 16:14 Last Admin: 06/20/25 17:01 Dose: 80 mg Documented By: CRYSTAL Pantoprazole Sodium (Pantoprazole Inj 40 Mg Vial) 40 mg IVP QDAY VIVIANA Stop: 07/25/25 08:59 Last Admin: 06/27/25 08:45 Dose: 40 mg Documented By: Admin: 06/26/25 08:11 Dose: 40 mg Documented By: Admin: 06/25/25 08:12 Dose: 40 mg Documented By: EDITA Potassium Chloride (Potassium Chloride 10% 20 Meq/15 Ml Udc) 40 meq PO X1 ONE Stop: 06/20/25 18:45 Last Admin: 06/20/25 19:11 Dose: 40 meq Documented By: LILIAM Potassium Chloride (Potassium Chloride 10% 20 Meq/15 Ml Udc) 40 meq PO X1 ONE Stop: 06/20/25 22:45 Last Admin: 06/20/25 23:02 Dose: Not Given Documented By: WO Non-Admin Reason: Discontinued Potassium Chloride (Potassium Chloride 20 Meq Tabcr) 40 meq PO X1 ONE Stop: 06/21/25 15:53 Last Admin: 06/21/25 16:15 Dose: 40 meq Documented By: LT Potassium Chloride (Potassium Chloride 20 Meq Tabcr) 20 meq PO X1 ONE Stop: 06/22/25 07:48 Last Admin: 06/22/25 07:57 Dose: 20 meq Documented By: MR Potassium Chloride (Potassium Chloride 20 Meq Tabcr) 40 meq PO X1 ONE Stop: 06/23/25 07:27 Last Admin: 06/23/25 08:08 Dose: 40 meq Documented By: PP Thiamine HCl (Thiamine Inj 100 Mg/Ml Vial 2 Ml) 100 mg IVP X1 ONE Stop: 06/20/25 18:45 Last Admin: 06/20/25 19:11 Dose: 100 mg Documented By: LILIAM Thiamine HCl (Thiamine 100 Mg Tablet) 100 mg PO QDAY VIVIANA Stop: 07/22/25 08:59 Last Admin: 06/23/25 08:08 Dose: 100 mg Documented By: Admin: 06/22/25 08:00 Dose: 100 mg Documented By: MR See above Consultations Consultation(s) initiated? (list below): No Diagnosis Nausea Differential Diagnosis: food poisoning, gastroenteritis, drug-induced nausea and vomiting and dehydration Most likely diagnosis given after review of the tests above:: Alcohol intoxication Admission Indicated Admission indicated?: not indicated Explain why admission is indicated or not indicated:: Signed out pending final dispo Admission Request Was there a request for admission?: No Disposition Plan Disposition Plan: other (specify) (signed out to Dr. Rees ) Discharge Plan Plan Patient condition on transfer: Stable Problem List Clinical Impression: Alcohol intoxication, Hypokalemia Discharge Order Discharge Orders: Discharge (Routine); Ordered 06/27/25 Ordered By: Sindy Navarro
--- NOTE | 2025-06-20 16:11 | EKG_ITS ---
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
[2025-06-20 16:49] LABS: Basophils # (Auto) 0.0 Thou/mm3 (0.0-0.2); Basophils % (Auto) 0 % (0-2.5); Eosinophils # (Auto) 0.0 Thou/mm3 (0.0-0.5); Eosinophils % (Auto) 0 % (0-10); Hematocrit 35.6 % (41.0-53.0); Hemoglobin 13.0 g/dL (13.5-16.0); Immature Granulocytes Auto 0.03 Thou/mm3 (0.00-0.00); Lymphocytes # (Auto) 1.2 Thou/mm3 (1.0-4.8); Lymphocytes % (Auto) 18 % (10-50); Mean Corpuscular HGB Conc 36.5 g/dl (31.0-37.0); Mean Corpuscular Hemoglobin 31.9 pg (25.0-35.0); Mean Corpuscular Volume 87 fL (80-100); Monocytes # (Auto) 0.7 Thou/mm3 (0.0-0.8); Monocytes % (Auto) 11 % (0-12); Neutrophils # (Auto) 4.8 Thou/mm3 (1.8-7.7); Neutrophils % (Auto) 71 % (37-80); Nucleated Red Blood Cell # 0.00 Thou/mm3 (0.00-0.00); Nucleated Red Blood Cell % 0 /100 WBC (0); Platelet Count 119 Thou/mm3 (140-440); RDW Standard Deviation 48.1 fL (35.1-43.9); Red Blood Count 4.08 Miln/mm3 (4.50-5.90); White Blood Count 6.7 Thou/mm3 (3.8-10.6)
[2025-06-20] MEDS: ONDANSETRON INJ 2 MG/ML INJ 2 ML 4 MG IVP (16:59)
[2025-06-20] MEDS: SODIUM CHLORIDE 0.9% 1000 ML 1,000 ML 999 ML IV (17:04)
[2025-06-20 17:22] LABS: Alanine Aminotransferase 121 U/L (10-49); Albumin, Serum 4.2 gm/dL (3.5-5.0); Albumin/Globulin Ratio 1.6 (1.2-2.2); Alkaline Phosphatase 136 U/L (46-116); Anion Gap 13 (7-16); Aspartate Amino Transferase 174 U/L (0-34); BUN/Creatinine Ratio 9 Ratio (12-20); Bilirubin,Total 1.2 mg/dL (0.3-1.2); Blood Urea Nitrogen 6 mg/dL (9-23); Calcium 8.7 mg/dL (8.3-10.6); Calcium (Corrected) 8.7 mg/dL (8.5-10.1); Carbon Dioxide 31.1 mMol/L (20.0-31.0); Chloride 86 mMol/L (98-107); Creatinine (Component) 0.7 mg/dL (0.6-1.3); Globulin 2.7 gm/dL (2.3-3.5); Glucose 171 mg/dL (74-106); Lipase 76 U/L (12-53); Magnesium 1.9 mg/dL (1.6-2.6); Osmolality,Calculated 262 (275-295); Potassium 3.0 mMol/L (3.4-5.1); Sodium 130 mMol/L (136-145); Total Protein 6.9 gm/dL (5.7-8.2); Troponin I 0.042 ng/mL (0.0-0.045); eGFR > 60 See Note
[2025-06-20 17:26] LABS: Alcohol, Blood Medical 588.7 mg/dL (0-10.0)
[2025-06-20 17:47] VITALS: BP 104/65; PULSE 88; RESP 18; TEMP 37.4; O2SAT 99
[2025-06-20 18:10] LABS: Collection Type, Urine Clean Catch; Squamous Epithelial Cell,Urine 0 /hpf (0-5)
[2025-06-20 18:22] LABS: Amphetamine/Methamp Scrn,U Negative (Negative); Barbiturate Screen,Urine Negative (Negative); Benzodiazepines Screen,Urine Negative (Negative); Benzoylecgonine Screen, Ur Negative (Negative); Fentanyl Screen,Urine Negative (Negative); Opiate Screen,Urine Negative (Negative); THC Screen,Urine Negative (Negative)
[2025-06-20 18:24] LABS: Bacteria,Urine Rare; Bilirubin,Urine Negative (Negative); Blood,Urine Trace (Negative); Clarity,Urine Clear (Clear/Hazy); Color,Urine Lt-Yellow (Lt Yel-Yel); Culture Indicated,Urine Not Indicated; Glucose, Urine Negative (Negative); Ketones,Urine Negative (Negative); Leukocyte Esterase,Urine Negative (Negative); Nitrite,Urine Negative (Negative); PH,Urine 6.5 (5.0-7.0); Protein,Urine Trace (Neg - Trace); RBC,Urine 1 /hpf (0-3); Specific Gravity,Urine 1.007 (1.001-1.035); Urobilinogen,Urine Negative mg/dL (0.0-1.0); WBC,Urine 1 /hpf (0-5)
--- NOTE | 2025-06-20 18:27 | PD.EDADDENDU ---
Emergency Room Addendum <Margot Mace - Last Filed: 06/21/25 01:45> Addendum Narrative: I took over the care from Dr. Morales at 6 PM on 06/20/2025, see her notes for complete H&P and ED course. I reviewed all diagnostic test results. At 6 AM on 06/21/2025, the care of the patient was transferred to Dr. Morales. During my watch, the patient remained stable. <Art Rees MD - Last Filed: 06/21/25 01:49> Addendum Narrative: I took over the care from Dr. Morales at 6 PM on 06/20/2025, see her notes for complete H&P and ED course. I reviewed all diagnostic test results. My interpretation of the EKG: NSR (96 bpm) with no ST-T changes. Blood and urine test remarkable for alcohol 588.7, K 3.0, and LFT elevation. Treatment here included: IV fluid Zofran Thiamine KCl At 6 AM on 06/21/2025, the care of the patient was transferred to Dr. Morales. During my watch, the patient remained stable. Art Rees MD
[2025-06-20] MEDS: POTASSIUM CHL 10 mEq IVPB 10 MEQ/100 ML BAG 80 MEQ IV ×2 (18:44→20:01)
[2025-06-20] MEDS: POTASSIUM CHLORIDE 10% 20 MEQ/15 ML UDC 40 MEQ PO (19:11)
[2025-06-20] MEDS: THIAMINE INJ 100 MG/ML VIAL 2 ML IVP (19:11)
[2025-06-20] MEDS: RINGERS LACTATED 1000 ML 1,000 ML IV ×2 (19:12→22:11)
[2025-06-20 19:28] VITALS: BP 131/87; PULSE 111; RESP 19; TEMP 36.6; O2SAT 96
[2025-06-20 19:39] VITALS: PULSE 91
[2025-06-20 20:32] LABS: INR 1.0 (0.9-1.3); Partial Thromboplastin Time 28.3 Seconds (22.0-36.0); Prothrombin Time 10.9 Seconds (9.0-12.2)
[2025-06-20 20:47] LABS: Amylase 128 U/L (30-118); Bilirubin,Total 1.0 mg/dL (0.3-1.2)
[2025-06-20] MEDS: POTASSIUM CHL 10 mEq IVPB 10 MEQ/100 ML BAG 100 MEQ IV ×2 (21:08→22:10)
[2025-06-20 21:13] VITALS: BMI 25.4
[2025-06-20 21:47] VITALS: BP 111/74; PULSE 100; RESP 18; TEMP 37.3; O2SAT 95
[2025-06-20 22:20] LABS: Anion Gap 13 (7-16); BUN/Creatinine Ratio 10 Ratio (12-20); Blood Urea Nitrogen 6 mg/dL (9-23); Calcium 7.4 mg/dL (8.3-10.6); Carbon Dioxide 27.6 mMol/L (20.0-31.0); Chloride 96 mMol/L (98-107); Creatinine (Component) 0.6 mg/dL (0.6-1.3); Estimated Creatinine Clearance 111.4 mL/min (>60); Glucose 91 mg/dL (74-106); Osmolality,Calculated 271 (275-295); Potassium 3.2 mMol/L (3.4-5.1); Sodium 137 mMol/L (136-145); eGFR > 60 See Note
[2025-06-20 22:29] LABS: Alcohol, Blood Medical 399.9 mg/dL (0-10.0)
[2025-06-21] VITALS (8 sets, daily range): BP systolic 100–135; BP diastolic 68–84; PULSE 85–110; RESP 14–20; TEMP 36.4–37.6; O2SAT 92–98
[2025-06-21] MEDS: RINGERS LACTATED 1000 ML 1,000 ML 200 ML IV (00:53)
[2025-06-21] MEDS: DIAZEPAM INJ 5 MG/ML VIAL 2 ML 10 MG IVP (05:51)
[2025-06-21 07:27] LABS: Alcohol, Blood Medical 196.8 mg/dL (0-10.0); Anion Gap 10 (7-16); BUN/Creatinine Ratio 8 Ratio (12-20); Blood Urea Nitrogen < 5 mg/dL (9-23); Calcium 8.1 mg/dL (8.3-10.6); Carbon Dioxide 29.8 mMol/L (20.0-31.0); Chloride 98 mMol/L (98-107); Creatinine (Component) 0.6 mg/dL (0.6-1.3); Estimated Creatinine Clearance 111.4 mL/min (>60); Glucose 85 mg/dL (74-106); Osmolality,Calculated 271 (275-295); Potassium 2.9 mMol/L (3.4-5.1); Sodium 138 mMol/L (136-145); eGFR > 60 See Note
[2025-06-21] MEDS: RINGERS LACTATED 1000 ML 1,000 ML 75 ML IV ×2 (09:22→23:30)
[2025-06-21] MEDS: METOCLOPRAMIDE INJ 5 MG/ML VIAL 2 ML 10 MG IVP ×2 (10:48→20:21)
[2025-06-21 10:50] LABS: Albumin, Serum 3.5 gm/dL (3.5-5.0); Anion Gap 12 (7-16); BUN/Creatinine Ratio 8 Ratio (12-20); Blood Urea Nitrogen < 5 mg/dL (9-23); Calcium 8.4 mg/dL (8.3-10.6); Calcium (Corrected) 8.8 mg/dL (8.5-10.1); Carbon Dioxide 29.1 mMol/L (20.0-31.0); Chloride 96 mMol/L (98-107); Creatinine (Component) 0.6 mg/dL (0.6-1.3); Estimated Creatinine Clearance 111.4 mL/min (>60); Glucose 114 mg/dL (74-106); Osmolality,Calculated 272 (275-295); Phosphorous 2.8 mg/dL (2.4-5.1); Potassium 2.8 mMol/L (3.4-5.1); Sodium 137 mMol/L (136-145); eGFR > 60 See Note
--- NOTE | 2025-06-21 11:35 | PD.EDADDENDU ---
Emergency Room Addendum Addendum Narrative: 0600: Care assumed from Dr. Rees, the previous shift emergency physician. Past medical, surgical, social and family history reviewed. Vitals and home medications reviewed. I will assume the care of the patient at this time, pending final disposition. Please refer to the emergency department record for history and examination from initial visit.?The following addendum documentation note is intended to reflect any pending information, findings, or radiology results not included in the patient?s initial chart. I spoke with resident Dr. Hayes working with Dr. Pascual. Discussed patients PMHx, HPI, ED course, exam findings, labs, and radiology results. The hospitalist agree to accept the patient for admission.
--- NOTE | 2025-06-21 13:06 | ESHP_ITS ---
<Statement entered by Narcisa Hayes MD - 06/21/25 14:27> Mr. Bryan is a 49-year-old male with no past medical history presented to the ED with nausea/vomiting for the last 24 hours after binge drinking for the last 5 days. Patient alludes to only drinking many beers daily for the last few days. Physical exam is positive for bilateral tremors and unsteady gait. Patient's labs significant for urine alcohol level of 588 now 196 with low potassium of 2.9. Patient was given Valium in the ED along with potassium and fluid resuscitation. Patient will be admitted to med/tele for further management of hypokalemia and alcohol intoxication versus withdrawal. Patient will be placed on CIWA protocol and will consider adding Librium/gabapentin. Will encourage p.o. intake including fluids. I discussed with and supervised the audit intern physician who took care of this patient. I personally saw and examined the patient and discussed the assessment and plan with the entire medicine team, including my attending Dr. Pascual, I agree with most of the assessment and plan as documented below Narcisa Hayes M.D. PGY-3 Disclaimer: Despite multiple revisions, due to the dictation software being used, the document bellow may not be free of grammatical errors including phonetic/typographic errors. However, this does not deter from our commitment to providing health care in the patient's best interest in mind. Documentation for date of: 06/21/25 HPI History of Present Illness Chief complaint: etoh intoxication vs withdrawl History of present illness: Mr. Bernardo is a 49-year-old gentleman with no significant past medical history he is not have a primary care doctor reports intermittently being seen in the emergency department and urgent care. He presents to the emergency department with alcohol intoxication he was brought in due to public disturbance. He states that he has never been in the hospital for alcohol-related seizures. He states that he had an additional $900 because he had not yet paid bills and went into a 5 to 6-day binge drinking session. He endorses drinking several beers over the past few days. his last drink was a few hours before presenting to the ED yesterday. ROS positive for chills nausea vomiting epigastric abdominal pain, diarrhea, tremors, anxiety ROS negative for fevers, chest pain, shortness of breath, dysuria Patient states that he does not take medications regularly, no PCP. patient states that he works in the [employer]. he lives with his and children in [facility]. ED course Dx Labs significant for urine alcohol 588 now 196, U tox otherwise negative, UA is bland, lipase 76 amylase 128, LFTs elevated, potassium of 3.0 now 2.9 EKG nl sinus Tx Zofran 4 mg IV x1 Diazepam 10 mg IV one-time Thiamine 100 mg x1 Potassium chloride 80 mill equivalents given Normal saline 1 L Lactated Ringer's 3 L Lorazepam 1 mg p.o admitted for managment of hypokalemia and etoh withdrawl Review of Systems Review of Systems Narrative Review of Systems: as per hpi Exam Vital Signs Temp Pulse Resp BP Pulse Ox O2 Del Method 98.1 F 93 16 135/68 H 96 Room Air 06/21/25 10:50 06/21/25 10:50 06/21/25 10:50 06/21/25 10:50 06/21/25 10:50 06/21/25 10:50 Narrative Exam GENERAL: no acute distress, tremulous, AAO x3, laying in bed HEENT: Head AT/ NC. Mucous membranes dry. PERRL. ears are dirty, with crusting noted. tongue wag NECK: Supple, no lymphadenopathy, no carotid bruits. CARDIOVASCULAR: RRR. Normal S1/S2, No m/r/g. No pitting edema of bilateral LEs. RESPIRATORY: CTAB. No wheezing, rhonchi, crackles. GASTROINTESTINAL: Abdomen soft, mildly tender epigastrum no palpable masses. Bowel sounds present RUQ bruise mildly tender to palpation MUSCULOSKELETAL:? No cyanosis or edema, no visible joint swelling. NEUROLOGICAL: CN II-XII grossly intact. No focal deficits. Sensation intact, symmetric. BUE tremulous, with asterixis PSYCHIATRIC: Awake and alert, not agitated, normal mood and affect. (recieved dose of lorazapam) SKIN: No obvious rashes, no jaundice, normal turgor. Results: Labs 06/22/25 04:31 06/22/25 04:31 Labs: Short CBC 06/20/25 Range/Units 16:34 WBC 6.7 (3.8-10.6) Thou/mm3 Hgb 13.0 L (13.5-16.0) g/dL Hct 35.6 L (41.0-53.0) % Plt Count 119 L (140-440) Thou/mm3 BMP 06/20/25 06/20/25 06/21/25 16:34 19:30 05:55 Sodium 130 L 137 138 Potassium 3.0 L 3.2 L 2.9 L Chloride 86 L 96 L 98 Carbon Dioxide 31.1 H 27.6 29.8 BUN 6 L 6 L < 5 L Creatinine 0.7 0.6 0.6 Glucose 171 H 91 D 85 Calcium 8.7 7.4 L 8.1 L 06/21/25 09:53 Sodium 137 Potassium 2.8 L Chloride 96 L Carbon Dioxide 29.1 BUN < 5 L Creatinine 0.6 Glucose 114 H Calcium 8.4 Cardiac Enzymes 06/20/25 Range/Units 16:34 Troponin I 0.042 (0.0-0.045) ng/mL Liver Function 06/20/25 06/20/25 06/21/25 Range/Units 16:34 19:30 09:53 Total Bilirubin 1.2 1.0 (0.3-1.2) mg/dL AST 174 H (0-34) U/L ALT 121 H (10-49) U/L Alkaline Phosphatase 136 H (46-116) U/L Albumin 4.2 3.5 D (3.5-5.0) gm/dL Urine 06/20/25 Range/Units 18:02 Urine Color Lt-Yellow (Lt Yel-Yel) Urine Clarity Clear (Clear/Hazy) Urine pH 6.5 (5.0-7.0) Ur Specific Hayes 1.007 (1.001-1.035) Urine Protein Trace (Neg - Trace) Urine Glucose (UA) Negative (Negative) Quality Measures Quality Measures VTE prophylaxis Medications Home Medications and Allergies Home Medications ?Medication ?Instructions ?Recorded ?Confirmed ?Type No Known Home Medications 06/21/25 0901/10 History Allergies Allergy/AdvReac Type Severity Reaction Status Date / Time No Known Allergies Allergy Unverified 06/21/25 09:14 Visit Medications Diazepam (Diazepam Inj 5 Mg/Ml Vial 2 Ml) 5 mg IVP Q2HR PRN PRN Reason: CIWA SCORE 16-19 Stop: 06/26/25 09:06 Heparin Sodium (Porcine) (Heparin Sod Inj 5000 Unit/Ml Vial) 5,000 unit SC Q8HR [facility] Stop: 07/05/25 13:59 Lactated Ringer's (Lactated Ringers) 1,000 mls @ 75 mls/hr IV .[id number] [facility] Stop: 07/21/25 09:14 Last Admin: 06/21/25 09:22 Dose: 75 mls/hr Lorazepam (Lorazepam 0.5 Mg Tablet) 0.5 mg PO Q4HR PRN PRN Reason: CIWA Score 2-6 Stop: 06/26/25 09:06 Lorazepam (Lorazepam 0.5 Mg Tablet) 1 mg PO Q4HR PRN PRN Reason: CIWA SCORE 7-11 Stop: 06/26/25 09:06 Last Admin: 06/21/25 10:47 Dose: 1 mg Lorazepam (Lorazepam 0.5 Mg Tablet) 2 mg PO Q4HR PRN PRN Reason: CIWA SCORE 12-15 Stop: 06/26/25 09:06 Metoclopramide HCl (Metoclopramide Inj 5 Mg/Ml Vial 2 Ml) 10 mg IVP Q6H PRN; Protocol PRN Reason: NAUSEA OR VOMITING Stop: 07/21/25 09:06 Last Admin: 06/21/25 10:48 Dose: 10 mg Discontinued Medications Diazepam (Diazepam Inj 5 Mg/Ml Vial 2 Ml) 10 mg IVP X1 ONE Stop: 06/20/25 18:46 Last Admin: 06/20/25 22:36 Dose: Not Given Diazepam (Diazepam Inj 5 Mg/Ml Vial 2 Ml) 10 mg IVP X1 ONE Stop: 06/21/25 05:15 Last Admin: 06/21/25 05:51 Dose: 10 mg Diazepam (Diazepam Inj 5 Mg/Ml Vial 2 Ml) 5 mg IVP Q2HR PRN PRN Reason: CIWA SCORE 16-19 Stop: 06/26/25 09:06 Sodium Chloride (Ns) 1,000 mls @ 999 mls/hr IV .Q1H1M ONE Stop: 06/20/25 17:12 Last Infusion: 06/20/25 19:00 Dose: Infused Potassium Chloride (Kcl Ivpb) 10 meq in 100 mls @ 100 mls/hr IV Q1H [facility] Stop: 06/20/25 21:49 Last Infusion: 06/20/25 23:19 Dose: Infused Lactated Ringer's (Lactated Ringers) 1,000 mls @ 1,000 mls/hr IV .Q1H ONE Stop: 06/20/25 19:44 Last Infusion: 06/20/25 20:12 Dose: Infused Lactated Ringer's (Lactated Ringers) 1,000 mls @ 1,000 mls/hr IV .Q1H ONE Stop: 06/20/25 22:37 Last Infusion: 06/20/25 23:15 Dose: Infused Lactated Ringer's (Lactated Ringers) 1,000 mls @ 200 mls/hr IV .Q5H ONE Stop: 06/21/25 05:45 Last Infusion: 06/21/25 05:53 Dose: Infused Morphine Sulfate (Morphine Sulf Inj 10 Mg/Ml Vial) 5 mg IVP X1 ONE Stop: 06/20/25 16:13 Last Admin: 06/20/25 16:20 Dose: Not Given Ondansetron HCl (Ondansetron Inj 2 Mg/Ml Inj 2 Ml) 4 mg IVP X1 ONE Stop: 06/20/25 16:13 Last Admin: 06/20/25 16:59 Dose: 4 mg Pantoprazole Sodium (Pantoprazole Inj 40 Mg Vial) 80 mg IVP X1 ONE Stop: 06/20/25 16:14 Last Admin: 06/20/25 17:01 Dose: 80 mg Potassium Chloride (Potassium Chloride 10% 20 Meq/15 Ml Udc) 40 meq PO X1 ONE Stop: 06/20/25 18:45 Last Admin: 06/20/25 19:11 Dose: 40 meq Potassium Chloride (Potassium Chloride 10% 20 Meq/15 Ml Udc) 40 meq PO X1 ONE Stop: 06/20/25 22:45 Last Admin: 06/20/25 23:02 Dose: Not Given Thiamine HCl (Thiamine Inj 100 Mg/Ml Vial 2 Ml) 100 mg IVP X1 ONE Stop: 06/20/25 18:45 Last Admin: 06/20/25 19:11 Dose: 100 mg Assessment & Plan Plan Mr. Bryan is a 49-year-old gentleman with no significant past medical history he does not have primary care doctor who presented to the ED with alcohol withdrawal (no hx of delerium tremens) who was admitted for etoh withdrawl vs intoxication, CIWA 9 and for managment of hyponatremia 2.9. #EtOH withdrawl vs #EtOH intoxication #EtOH use disorder Last Drink 06/20 No Hx Seizures / DTs Evidence of End-Organ Damage yes with elevated LFTs, lipase pt endorses drinking several beers over the past 5 days, presents with tremors, tongue wag and anxiety, PLAN - Check CMP, INR, Daily BMP+Mg - 1L NS, 100mg thiamine - Daily Thiamine, MVI qd - Insomnia: Melatonin 3mg - CIWA protocol #hypokalemia given total of 80 ME KCl while in the ED, K still low likely low 2/2 poor po intake and GI losses PLAN - follow up PM renal panel - daily cmp #Transaminitis 2/2 EtOH use - CTM LFTs #normocytic anemia - f/u iron panel - B12 pending #thrombocytopenia coag panel wnl Dispo: observation, CIWA protocol Diet: Regular Bowel Reg: not indicated VTE ppx: heparin 5000 GI ppx: protonox Code status: Full Plan discussed with Dr Hayes, and Dr. Ankur Muñoz MD PGY1 Attending Provider Attestation/Addendum I have examined the patient, reviewed labs and imaging findings, discussed the case with the resident(s), and reviewed entered orders. I agree with the plan of care as outlined in this note, with these additional summaries/recommendations: After examination of the patient and review of the clinical data, I feel that this patient needs admission to the hospital for further treatment and evaluation. Patient is a 49-year-old male with a medical history of alcohol use disorder presents to [facility] emergency department on 06/21/2025 with nonspecific complaints of bilateral shaking, nausea/vomiting, and abdominal pain. Patient seen at bedside. Significant bilateral hand tremor present in patient's somnolent and slow to respond. He does not appear to be a good historian at this time. Patient will be started on CIWA for likely alcohol withdrawal. Ethyl alcohol level was significantly elevated on admission although patient's symptoms appear more consistent with alcohol withdrawal time rather than intoxication. Start CIWA protocol. If symptoms worsen we will consider adding Librium. No history of cirrhosis although although patient likely has a component of liver damage from chronic alcohol use. Once mentation is more improved we will investment counselor patient on cessation. Mild hypokalemia and hypocalcemia present, replacement given and follow-up repeat levels. Thrombocytopenia possibly secondary to liver synthetic dysfunction although mild at this time and can be followed up outpatient. vp celebrity services referral once mentation is more improved. Please see residents note for additional details and management. Dr. Ankur MD
[2025-06-21 14:55] LABS: Albumin, Serum 3.6 gm/dL (3.5-5.0); Anion Gap 15 (7-16); BUN/Creatinine Ratio 8 Ratio (12-20); Blood Urea Nitrogen < 5 mg/dL (9-23); Calcium 8.6 mg/dL (8.3-10.6); Calcium (Corrected) 8.9 mg/dL (8.5-10.1); Carbon Dioxide 25.1 mMol/L (20.0-31.0); Chloride 94 mMol/L (98-107); Creatinine (Component) 0.6 mg/dL (0.6-1.3); Estimated Creatinine Clearance 111.4 mL/min (>60); Glucose 133 mg/dL (74-106); Osmolality,Calculated 267 (275-295); Phosphorous 2.9 mg/dL (2.4-5.1); Potassium 2.9 mMol/L (3.4-5.1); Sodium 134 mMol/L (136-145); eGFR > 60 See Note
[2025-06-21 19:10] LABS: Albumin, Serum 3.4 gm/dL (3.5-5.0); Anion Gap 10 (7-16); BUN/Creatinine Ratio 8 Ratio (12-20); Blood Urea Nitrogen < 5 mg/dL (9-23); Calcium 8.3 mg/dL (8.3-10.6); Calcium (Corrected) 8.8 mg/dL (8.5-10.1); Carbon Dioxide 28.2 mMol/L (20.0-31.0); Chloride 92 mMol/L (98-107); Creatinine (Component) 0.6 mg/dL (0.6-1.3); Estimated Creatinine Clearance 111.4 mL/min (>60); Glucose 169 mg/dL (74-106); Osmolality,Calculated 262 (275-295); Phosphorous 2.5 mg/dL (2.4-5.1); Potassium 3.2 mMol/L (3.4-5.1); Sodium 130 mMol/L (136-145); eGFR > 60 See Note
[2025-06-21] MEDS: HEPARIN SOD INJ 5000 UNIT/ML VIAL SC (20:15)
[2025-06-21] MEDS: MELATONIN 3 MG TABLET PO (20:15)
[2025-06-21] MEDS: BALSAM PERU/CASTOR OIL (Venelex) 60 GM TUBE TOP (20:15)
[2025-06-22] VITALS (10 sets, daily range): BP systolic 107–153; BP diastolic 73–92; PULSE 96–137; RESP 13–22; TEMP 36.6–37.6; O2SAT 95–97
--- NOTE | 2025-06-22 04:51 | PC.NURSE ---
[facility]
[2025-06-22 05:41] LABS: Basophils # (Auto) 0.0 Thou/mm3 (0.0-0.2); Basophils % (Auto) 1 % (0-2.5); Eosinophils # (Auto) 0.1 Thou/mm3 (0.0-0.5); Eosinophils % (Auto) 1 % (0-10); Hematocrit 33.1 % (41.0-53.0); Hemoglobin 11.5 g/dL (13.5-16.0); Immature Granulocytes Auto 0.03 Thou/mm3 (0.00-0.00); Lymphocytes # (Auto) 0.5 Thou/mm3 (1.0-4.8); Lymphocytes % (Auto) 10 % (10-50); Mean Corpuscular HGB Conc 34.7 g/dl (31.0-37.0); Mean Corpuscular Hemoglobin 31.8 pg (25.0-35.0); Mean Corpuscular Volume 91 fL (80-100); Monocytes # (Auto) 0.6 Thou/mm3 (0.0-0.8); Monocytes % (Auto) 12 % (0-12); Neutrophils # (Auto) 3.7 Thou/mm3 (1.8-7.7); Neutrophils % (Auto) 76 % (37-80); Nucleated Red Blood Cell # 0.00 Thou/mm3 (0.00-0.00); Nucleated Red Blood Cell % 0 /100 WBC (0); Platelet Count 97 Thou/mm3 (140-440); RDW Standard Deviation 52.4 fL (35.1-43.9); Red Blood Count 3.62 Miln/mm3 (4.50-5.90); White Blood Count 4.9 Thou/mm3 (3.8-10.6)
[2025-06-22 05:53] LABS: Alanine Aminotransferase 86 U/L (10-49); Albumin, Serum 3.5 gm/dL (3.5-5.0); Albumin/Globulin Ratio 1.5 (1.2-2.2); Alkaline Phosphatase 122 U/L (46-116); Anion Gap 13 (7-16); Aspartate Amino Transferase 120 U/L (0-34); BUN/Creatinine Ratio 10 Ratio (12-20); Bilirubin,Total 1.5 mg/dL (0.3-1.2); Blood Urea Nitrogen < 5 mg/dL (9-23); Calcium 9.0 mg/dL (8.3-10.6); Calcium (Corrected) 9.4 mg/dL (8.5-10.1); Carbon Dioxide 25.5 mMol/L (20.0-31.0); Cardiac Risk Estimate 1.8 RATIO (4.0-6.7); Chloride 94 mMol/L (98-107); Cholesterol 147 mg/dL (132-200); Creatinine (Component) 0.5 mg/dL (0.6-1.3); Estimated Creatinine Clearance 133.7 mL/min (>60); Globulin 2.4 gm/dL (2.3-3.5); Glucose 84 mg/dL (74-106); HDL Cholesterol 83 mg/dL (40-60); LDL Cholesterol,Calculated 54 mg/dL (0-130); Magnesium 1.4 mg/dL (1.6-2.6); Osmolality,Calculated 260 (275-295); Phosphorous 2.5 mg/dL (2.4-5.1); Potassium 3.2 mMol/L (3.4-5.1); Sodium 132 mMol/L (136-145); Total Protein 5.9 gm/dL (5.7-8.2); Triglycerides 48 mg/dL (30-150); eGFR > 60 See Note
[2025-06-22 05:55] LABS: Vitamin B12 991 pg/mL (211-911)
[2025-06-22 05:59] LABS: Iron 35 mcg/dL (65-175); Percent Iron Saturation 20 % (20-55); Total Iron Binding Capacity 172 mcg/dL (250-425); Unsaturated Iron Binding 137 (225-295)
[2025-06-22] MEDS: Magnesium Sulfate 4 GM Ivpb 4 GM/50 ML BAG IV (07:57)
[2025-06-22] MEDS: THIAMINE 100 MG TABLET PO (08:00)
[2025-06-22] MEDS: BALSAM PERU/CASTOR OIL (Venelex) 60 GM TUBE TOP ×2 (08:00→20:45)
[2025-06-22] MEDS: HEPARIN SOD INJ 5000 UNIT/ML VIAL SC (08:00)
[2025-06-22] MEDS: MULTIVITAMINS TABLET 1 TAB PO (08:00)
--- NOTE | 2025-06-22 09:16 | PC.SS ---
Patient Jeb Bryan is a 49 -year-old male admitted for ETOH INTOX. SS made contact with patient at bedside and patient to complete initial and discuss discharge disposition. Role and reason for the contact was explained to patient. Demographic information was verified. Pt reports he lives at home with his life partner, Shyanne Taylor who he reports is his surrogate decision maker [phone]. He is independent with all ADLs. Patient does not utilize any source of DME, or home O2. Pt's choice of pharmacy is [facility] patient goes to [facility] for medical services. SS inquired about ETOH. Pt open to receiving resources, the following were provided to the patient: Health and Human Services office information on alcohol abuse, the warm line, list of mental health clinics, list of AA meetings, list of alcohol rehabs, and community resource list. Patient reports he drinks about 2-3 cans of beer a day sometimes more than that, he reports he stopped drinking 3 days ago and is why he was having the withdrawals. At time of discharge patient will return home, life partner will provide transportation. Discharge Plan: Home Next of kin: Life partner, Shyanne Bryan
--- NOTE | 2025-06-22 12:27 | EKG_ITS ---
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
--- NOTE | 2025-06-22 12:28 | PC.NURSE ---
IN PATIENTS ROOM ABOUT TO GIVE PT'S ATIVAN PER [facility] PROTOCOL. PHYSICAL EDUCATION INSTRUCTOR CALLED PTS HR RATE ELEVATED. PATIENT'S HR 130'S-140'S SUSTAINING, DENIES CHEST PAIN, HEADACHE, SOB. PATIENT EATING LUNCH IN NO DISTRESS ABLE TO COMMUNICATE HIS NEEDS. DR. CHRISTOPHER MADE AWARE, ORDER EKG URGENT, ORDER RECEIVED, READ BACK AND CARRIED OUT. WILL CONTINUE TO MONITOR.
[2025-06-22] MEDS: RINGERS LACTATED 1000 ML 1,000 ML 75 ML IV (12:50)
--- NOTE | 2025-06-22 13:33 | ESPR_ITS ---
<Statement entered by Narcisa Hayes MD - 06/22/25 17:23> Overnight, patient seen this sahil has been well below 10 however this morning patient CIWA dropped to 14. Patient has been well-controlled with p.o. Ativan and has not required the use of IV diltiazem. Later this afternoon, patient CIWA score was a 15, and still agitated status post Ativan 2 mg p.o. Will give patient IV diltiazem x 1 and start patient on Librium 25 Q8. Patient also would like psych social worker to speak to him regarding resources for alcohol cessation. Anticipate discharge within 24 to 48 hours. I discussed with and supervised the intern brand physician who took care of this patient. I personally saw and examined the patient and discussed the assessment and plan with the entire medicine team, including my attending Dr. Pascual, I agree with most of the assessment and plan as documented below Narcisa Hayes M.D. PGY-3 Disclaimer: Despite multiple revisions, due to the dictation software being used, the document bellow may not be free of grammatical errors including phonetic/typographic errors. However, this does not deter from our commitment to providing health care in the patient's best interest in mind. <Statement entered by Sindy Navarro MD - 06/22/25 17:09> Note reviewed, I agree with most of its contents and agree with the patient's care as documented by Dr. Muñoz. Patient examined at bedside. Vitals are stable, hemoglobin 11.5, platelets down trended 97. CIWA score ranging 13-5, exhibiting some agitation with restlessness. Continue Librium, Lorazepam, and Valium based off CIWA score for alcohol withdrawl. Encourage fluid/oral intake. He expresses interest in cessation of alcohol consumption. Will have psych social worker team to speak with patient and provide necessary resources. The patient's management plan was discussed with my attending physician Dr. Pascual. Sindy Navarro, PGY-2 Documentation for date of: 06/22/25 Exam Vital Signs Temp Pulse Resp BP Pulse Ox O2 Del Method 99.2 F 137 H 21 H 131/80 H 97 Room Air 06/22/25 12:00 06/22/25 12:34 06/22/25 12:00 06/22/25 12:00 06/22/25 12:00 06/22/25 12:00 Objective Labs 06/23/25 05:00 06/23/25 05:00 Labs: Laboratory Results - last 24 hr 06/21/25 06/21/25 06/22/25 14:04 18:30 04:31 WBC 4.9 RBC 3.62 L Hgb 11.5 L Hct 33.1 L MCV 91 MCH 31.8 MCHC 34.7 RDW Std Deviation 52.4 H Plt Count 97 L Neut % (Auto) 76 Lymph % (Auto) 10 [place] % (Auto) 12 Eos % (Auto) 1 Baso % (Auto) 1 Neut # (Auto) 3.7 Lymph # (Auto) 0.5 L [place] # (Auto) 0.6 Eos # (Auto) 0.1 Baso # (Auto) 0.0 Immature Gran # (Auto) 0.03 H Absolute Nucleated RBC 0.00 Immature Gran % 1 H Nucleated RBC % 0 Sodium 134 L 130 L 132 L Potassium 2.9 L 3.2 L 3.2 L Chloride 94 L 92 L 94 L Carbon Dioxide 25.1 28.2 25.5 Anion Gap 15 10 13 BUN < 5 L < 5 L < 5 L Creatinine 0.6 0.6 0.5 L Estim Creat Clear Calc 111.4 111.4 133.7 eGFR > 60 > 60 > 60 BUN/Creatinine Ratio 8 L 8 L 10 L Glucose 133 H 169 H 84 D Calculated Osmolality 267 L 262 L 260 L Calcium 8.6 8.3 9.0 Corrected Calcium 8.9 8.8 9.4 Phosphorus 2.9 2.5 2.5 Magnesium 1.4 L Iron 35 L TIBC 172 L Iron Saturation 20 Unsat Iron Binding 137 L Total Bilirubin 1.5 H D AST 120 H ALT 86 H Alkaline Phosphatase 122 H Total Protein 5.9 Albumin 3.6 3.4 L 3.5 Globulin 2.4 Albumin/Globulin Ratio 1.5 Triglycerides 48 Cholesterol 147 LDL Cholesterol, Calc 54 HDL Cholesterol 83 H Cholesterol/HDL Ratio 1.8 L Vitamin B12 991 H Quality Measures Quality Measures VTE prophylaxis Assessment & Plan Assessment Current Active Medications: Generic Name Dose Route Start Last Admin Trade Name Freq PRN Reason Stop Dose Admin Balsam Daren/[place] Oil 0 gm 06/21/25 21:00 06/22/25 08:00 Balsam [place] Oil (Venelex) 60 Gm Tube TOP 07/21/25 20:59 1 applicatio BID VIVIANA Administration Chlordiazepoxide HCl 25 mg 06/22/25 14:00 Chlordiazepoxide Hcl 25 Mg Capsule PO 06/27/25 13:59 TID VIVIANA Diazepam 5 mg 06/21/25 09:15 Diazepam Inj 5 Mg/Ml Vial 2 Ml IVP 06/26/25 09:06 Q2HR PRN CIWA SCORE 16-19 Heparin Sodium (Porcine) 5,000 unit 06/21/25 21:00 06/22/25 08:00 Heparin Sod Inj 5000 Unit/Ml Vial SC 07/05/25 20:59 5,000 unit Q12HR VIVIANA Administration Lactated Ringer's 1,000 mls @ 75 mls/hr 06/21/25 09:15 06/22/25 12:50 Lactated Ringers IV 07/21/25 09:14 75 mls/hr .[id number] VIVIANA Administration Lorazepam 0.5 mg 06/21/25 09:07 06/22/25 00:35 Lorazepam 0.5 Mg Tablet PO 06/26/25 09:06 0.5 mg Q4HR PRN Administration CIWA Score 2-6 Lorazepam 1 mg 06/21/25 09:07 06/22/25 12:25 Lorazepam 0.5 Mg Tablet PO 06/26/25 09:06 1 mg Q4HR PRN Administration CIWA SCORE 7-11 Lorazepam 2 mg 06/21/25 09:07 06/22/25 08:48 Lorazepam 0.5 Mg Tablet PO 06/26/25 09:06 2 mg Q4HR PRN Administration CIWA SCORE 12-15 Melatonin 3 mg 06/21/25 21:00 06/21/25 20:15 Melatonin 3 Mg Tablet PO 07/21/25 20:59 3 mg HS VIVIANA Administration Metoclopramide HCl 10 mg 06/21/25 09:07 06/21/25 20:21 Metoclopramide Inj 5 Mg/Ml Vial 2 Ml IVP 07/21/25 09:06 10 mg Q6H PRN Administration NAUSEA OR VOMITING Protocol Multivitamins 1 tab 06/22/25 09:00 06/22/25 08:00 Multivitamins Tablet PO 07/22/25 08:59 1 tab QDAY VIVIANA Administration Thiamine HCl 100 mg 06/22/25 09:00 06/22/25 08:00 Thiamine 100 Mg Tablet PO 07/22/25 08:59 100 mg QDAY VIVIANA Administration Plan Mr. Bryan is a 49-year-old gentleman with no significant past medical history he does not have primary care doctor who presented to the ED with alcohol withdrawal (no hx of delerium tremens) who was admitted for etoh withdrawl vs intoxication, CIWA 9 and for managment of hyponatremia 2.9, now improving to 3.2, f/u pm renal panel. continues to have agitation and tremors on exam #EtOH withdrawl vs #EtOH intoxication #Transaminitis 2/2 ETOH use (AST: ALT ratio 1.39) #EtOH use disorder Last Drink 06/20 No Hx Seizures / DTs Evidence of End-Organ Damage yes with elevated LFTs, lipase pt endorses drinking several beers over the past 5 days, presents with tremors, tongue wag and anxiety, pt continues to have agitation and tremors, pt expresses some desire to stop drinking PLAN - given Librium 25 mg TID - Check CMP, INR, Daily BMP+Mg, trend LFT - 1L NS, 100mg thiamine - Daily Thiamine, MVI qd - Insomnia: Melatonin 3mg - protocol - provide drinking cessation information at time of discharge. #electrolyte abnormalities #hypokalemia - improved (2.9-->3.2) #hypomagnasemia given total of 80 ME KCl while in the ED, likely low 2/2 poor po intake and GI losses PLAN - follow up PM renal panel - replete as needed - daily cmp #normocytic anemia - low iron - pending ferritin - B12 elevated #hyperlipidemia #thrombocytopenia coag panel wnl Dispo: observation, CIWA protocol Diet: Regular Bowel Reg: not indicated VTE ppx: heparin 5000 GI ppx: protonox Code status: Full Plan discussed with Dr. Navarro, Dr Hayes, and Dr. Ankur Muñoz MD PGY1 Attending Provider Attestation/Addendum I have examined the patient, reviewed labs and imaging findings, discussed the case with the resident(s), and reviewed entered orders. I agree with the plan of care as outlined in this note, with these additional summaries/recommendations: Patient is a 49-year-old male with a medical history of alcohol use disorder presents to [facility] emergency department on 06/21/2025 with nonspecific complaints of bilateral shaking, nausea/vomiting, and abdominal pain. Patient seen at bedside. No acute overnight events. Patient is more responsive today although alcohol withdrawal not resolved. CIWA 14 points this morning. Scheduled Librium added to regimen. Continue CIWA protocol for alcohol withdrawal. Patient does not express desire to quit. No history of cirrhosis although patient likely has a component of liver damage from chronic alcohol use. Patient was counseled on alcohol cessation. Mild hypokalemia and hypocalcemia present, replacement given and follow-up repeat levels. Thrombocytopenia possibly secondary to liver synthetic dysfunction although mild at this time and can be followed up outpatient. eligibility services representative referral once mentation is more improved. Please see residents note for additional details and management. Dr. Ankur MD
[2025-06-22] MEDS: METOCLOPRAMIDE INJ 5 MG/ML VIAL 2 ML 10 MG IVP (14:00)
--- NOTE | 2025-06-22 15:00 | PC.SS ---
SS follow up note: CIWA Protocol, patient will discharge within 2-3 days.
[2025-06-22] MEDS: DIAZEPAM INJ 5 MG/ML VIAL 2 ML IVP ×3 (17:17→23:51)
--- NOTE | 2025-06-22 19:00 | PC.NURSE ---
While report pt alarm sounding trying to get out of bed. Pt confused stating needs to go to [place] orineted pt, pt back to bed, current CIWA 15.
--- NOTE | 2025-06-22 19:39 | PC.NURSE ---
Valium given per order, pt restless, one to one staff placed at bedside.
[2025-06-22 20:09] LABS: Albumin, Serum 3.9 gm/dL (3.5-5.0); Anion Gap 12 (7-16); BUN/Creatinine Ratio 6 Ratio (12-20); Blood Urea Nitrogen 5 mg/dL (9-23); Calcium 8.9 mg/dL (8.3-10.6); Calcium (Corrected) 9.0 mg/dL (8.5-10.1); Carbon Dioxide 26.3 mMol/L (20.0-31.0); Chloride 95 mMol/L (98-107); Creatinine (Component) 0.9 mg/dL (0.6-1.3); Estimated Creatinine Clearance 74.3 mL/min (>60); Glucose 136 mg/dL (74-106); Osmolality,Calculated 265 (275-295); Phosphorous 1.9 mg/dL (2.4-5.1); Potassium 3.2 mMol/L (3.4-5.1); Sodium 133 mMol/L (136-145); eGFR > 60 See Note
[2025-06-22] MEDS: MELATONIN 3 MG TABLET PO (20:45)
[2025-06-23] VITALS (57 sets, daily range): BP systolic 104–163; BP diastolic 76–113; PULSE 97–170; RESP 2–29; TEMP 36.1–37.3; O2SAT 94–98
[2025-06-23] MEDS: RINGERS LACTATED 1000 ML 1,000 ML 75 ML IV (01:53)
[2025-06-23] MEDS: DIAZEPAM INJ 5 MG/ML VIAL 2 ML IVP ×3 (02:00→16:16)
[2025-06-23 06:36] LABS: Basophils # (Auto) 0.1 Thou/mm3 (0.0-0.2); Basophils % (Auto) 1 % (0-2.5); Eosinophils # (Auto) 0.1 Thou/mm3 (0.0-0.5); Eosinophils % (Auto) 1 % (0-10); Hematocrit 37.8 % (41.0-53.0); Hemoglobin 13.6 g/dL (13.5-16.0); Immature Granulocytes Auto 0.04 Thou/mm3 (0.00-0.00); Lymphocytes # (Auto) 1.3 Thou/mm3 (1.0-4.8); Lymphocytes % (Auto) 27 % (10-50); Mean Corpuscular HGB Conc 36.0 g/dl (31.0-37.0); Mean Corpuscular Hemoglobin 33.1 pg (25.0-35.0); Mean Corpuscular Volume 92 fL (80-100); Monocytes # (Auto) 0.9 Thou/mm3 (0.0-0.8); Monocytes % (Auto) 19 % (0-12); Neutrophils # (Auto) 2.5 Thou/mm3 (1.8-7.7); Neutrophils % (Auto) 52 % (37-80); Nucleated Red Blood Cell # 0.00 Thou/mm3 (0.00-0.00); Nucleated Red Blood Cell % 0 /100 WBC (0); Platelet Count 143 Thou/mm3 (140-440); RDW Standard Deviation 53.1 fL (35.1-43.9); Red Blood Count 4.11 Miln/mm3 (4.50-5.90); White Blood Count 4.9 Thou/mm3 (3.8-10.6)
[2025-06-23 06:59] LABS: Ferritin 982 ng/mL (10.5-307.3)
[2025-06-23 07:09] LABS: Alanine Aminotransferase 103 U/L (10-49); Albumin, Serum 3.9 gm/dL (3.5-5.0); Albumin/Globulin Ratio 1.4 (1.2-2.2); Alkaline Phosphatase 134 U/L (46-116); Anion Gap 16 (7-16); Aspartate Amino Transferase 133 U/L (0-34); BUN/Creatinine Ratio 8 Ratio (12-20); Bilirubin,Total 0.9 mg/dL (0.3-1.2); Blood Urea Nitrogen < 5 mg/dL (9-23); Calcium 9.4 mg/dL (8.3-10.6); Calcium (Corrected) 9.5 mg/dL (8.5-10.1); Carbon Dioxide 24.3 mMol/L (20.0-31.0); Chloride 95 mMol/L (98-107); Creatinine (Component) 0.6 mg/dL (0.6-1.3); Estimated Creatinine Clearance 111.4 mL/min (>60); Globulin 2.8 gm/dL (2.3-3.5); Glucose 95 mg/dL (74-106); Magnesium 1.6 mg/dL (1.6-2.6); Osmolality,Calculated 267 (275-295); Phosphorous 2.6 mg/dL (2.4-5.1); Potassium 2.9 mMol/L (3.4-5.1); Sodium 135 mMol/L (136-145); Total Protein 6.7 gm/dL (5.7-8.2); eGFR > 60 See Note
--- NOTE | 2025-06-23 07:30 | ESPR_ITS ---
<Statement entered by Sindy Navarro MD - 06/23/25 17:40> Note reviewed, I agree with most of its contents and agree with the patient's care as documented by Dr. Muñoz. Patient examined at bedside. No events overnight. Continues to have severe withdrawal symptoms of CIWA around 16. Upon further questioning he does not remember where he is at times stating he is in [place]. Patient has one-on-one sitter who stated that there are no signs of aggressive behaviors. Patient is able to be redirected and symptoms adequately controlled with Librium, Valium, Ativan. Continue this current regimen for alcohol withdrawals. Close monitoring for any seizures. Encourage oral intake. Electrolytes were repleted as needed. The patient's management plan was discussed with my attending physician Dr. Pascual. Sindy Navarro, PGY-2 Documentation for date of: 06/23/25 Subjective Subjective Interval history: Mr. Bernardo is a 49-year-old gentleman with no significant past medical history he is not have a primary care doctor reports intermittently being seen in the emergency department and urgent care. He presents to the emergency department with alcohol intoxication he was brought in due to public disturbance. He states that he has never been in the hospital for alcohol-related seizures. He states that he had an additional $900 because he had not yet paid bills and went into a 5 to 6-day binge drinking session. He endorses drinking several beers over the past few days. his last drink was a few hours before presenting to the ED yesterday. 06/23/2025: pt with low fever to 99, given 320 apap, BMP with Na 2.9, given 40 ME KCl, pm renal panel pending. CIWA elevated to 16, given librium, diazapam, and lorazapam. pt gait is unsteady, unable to ambulate to toilet. no nausea or vomiting symptoms. Exam Vital Signs Temp Pulse Resp BP Pulse Ox O2 Del Method 98.9 F 117 H 20 152/91 H 95 Room Air 06/23/25 04:00 06/23/25 04:36 06/23/25 04:00 06/23/25 04:00 06/23/25 04:00 06/23/25 04:00 Narrative Exam GENERAL: no acute distress, tremulous, AAO x3, laying in bed HEENT: Head AT/ NC. Mucous membranes dry. PERRL. ears are dirty, with crusting noted. tongue wag, speech is easier to understand NECK: Supple, no lymphadenopathy, no carotid bruits. CARDIOVASCULAR: RRR. Normal S1/S2, No m/r/g. No pitting edema of bilateral LEs. RESPIRATORY: CTAB. No wheezing, rhonchi, crackles. GASTROINTESTINAL: Abdomen soft, non tender to palpable masses. Bowel sounds present RUQ bruise mildly tender to palpation MUSCULOSKELETAL:? No cyanosis or edema, no visible joint swelling. NEUROLOGICAL: CN II-XII grossly intact. No focal deficits. Sensation intact, symmetric. BUE tremulous, gait unsteady PSYCHIATRIC: Awake and alert, not agitated, normal mood and affect. SKIN: No obvious rashes, no jaundice, normal turgor. Objective Labs 06/24/25 04:56 06/24/25 04:56 Labs: Laboratory Results - last 24 hr 06/22/25 06/23/25 19:37 05:00 WBC 4.9 RBC 4.11 L Hgb 13.6 D Hct 37.8 L MCV 92 MCH 33.1 MCHC 36.0 RDW Std Deviation 53.1 H Plt Count 143 D Neut % (Auto) 52 Lymph % (Auto) 27 [place] % (Auto) 19 H Eos % (Auto) 1 Baso % (Auto) 1 Neut # (Auto) 2.5 Lymph # (Auto) 1.3 [place] # (Auto) 0.9 H Eos # (Auto) 0.1 Baso # (Auto) 0.1 Immature Gran # (Auto) 0.04 H Absolute Nucleated RBC 0.00 Immature Gran % 1 H Nucleated RBC % 0 Sodium 133 L 135 L Potassium 3.2 L 2.9 L Chloride 95 L 95 L Carbon Dioxide 26.3 24.3 Anion Gap 12 16 BUN 5 L < 5 L Creatinine 0.9 0.6 Estim Creat Clear Calc 74.3 111.4 eGFR > 60 > 60 BUN/Creatinine Ratio 6 L 8 L Glucose 136 H D 95 Calculated Osmolality 265 L 267 L Calcium 8.9 9.4 Corrected Calcium 9.0 9.5 Phosphorus 1.9 L 2.6 Magnesium 1.6 Ferritin 982 H Total Bilirubin 0.9 D AST 133 H ALT 103 H Alkaline Phosphatase 134 H Total Protein 6.7 Albumin 3.9 3.9 Globulin 2.8 Albumin/Globulin Ratio 1.4 Quality Measures Quality Measures VTE prophylaxis Assessment & Plan Assessment Current Active Medications: Generic Name Dose Route Start Last Admin Trade Name Yessi PRN Reason Stop Dose Admin Acetaminophen 325 mg 06/23/25 07:28 Acetaminophen 325 Mg Tablet PO 06/23/25 07:29 X1 ONE Balsam [place] Oil 0 gm 06/21/25 21:00 06/22/25 20:45 Balsam [place] Oil (Venelex) 60 Gm Tube TOP 07/21/25 20:59 1 applicatio BID VIVIANA Administration Chlordiazepoxide HCl 25 mg 06/22/25 14:00 06/23/25 05:33 Chlordiazepoxide Hcl 25 Mg Capsule PO 06/27/25 13:59 25 mg TID VIVIANA Administration Diazepam 5 mg 06/22/25 17:04 06/23/25 05:33 Diazepam Inj 5 Mg/Ml Vial 2 Ml IVP 06/26/25 09:06 5 mg Q2HR PRN Administration CIWA SCORE 15-19 Heparin Sodium (Porcine) 5,000 unit 06/21/25 21:00 06/22/25 20:45 Heparin Sod Inj 5000 Unit/Ml Vial SC 07/05/25 20:59 Not Given Q12HR VIVIANA Magnesium Sulfate 4 gm in 50 mls @ 12.5 mls/hr 06/23/25 07:26 Magnesium Sulfate Ivpb IV 06/23/25 11:25 X1 ONE Sodium Chloride 1,000 mls @ 100 mls/hr 06/23/25 07:27 Ns IV 07/23/25 07:26 .Q10H VIVIANA Lorazepam 0.5 mg 06/21/25 09:07 06/22/25 00:35 Lorazepam 0.5 Mg Tablet PO 06/26/25 09:06 0.5 mg Q4HR PRN Administration CIWA Score 2-6 Lorazepam 1 mg 06/21/25 09:07 06/22/25 21:48 Lorazepam 0.5 Mg Tablet PO 06/26/25 09:06 1 mg Q4HR PRN Administration CIWA SCORE 7-11 Lorazepam 2 mg 06/22/25 17:04 06/23/25 03:56 Lorazepam 0.5 Mg Tablet PO 06/26/25 09:06 2 mg Q4HR PRN Administration CIWA SCORE 12-14 Melatonin 3 mg 06/21/25 21:00 06/22/25 20:45 Melatonin 3 Mg Tablet PO 07/21/25 20:59 3 mg HS VIVIANA Administration Metoclopramide HCl 10 mg 06/21/25 09:07 06/22/25 14:00 Metoclopramide Inj 5 Mg/Ml Vial 2 Ml IVP 07/21/25 09:06 10 mg Q6H PRN Administration NAUSEA OR VOMITING Protocol Multivitamins 1 tab 06/22/25 09:00 06/22/25 08:00 Multivitamins Tablet PO 07/22/25 08:59 1 tab QDAY VIVIANA Administration Potassium Chloride 40 meq 06/23/25 07:26 Potassium Chloride 20 Meq Tabcr PO 06/23/25 07:27 X1 ONE Thiamine HCl 100 mg 06/22/25 09:00 06/22/25 08:00 Thiamine 100 Mg Tablet PO 07/22/25 08:59 100 mg QDAY VIVIANA Administration Plan Mr. Bryan is a 49-year-old gentleman with no significant past medical history he does not have primary care doctor who presented to the ED with alcohol withdrawal (no hx of delerium tremens) who was admitted for etoh withdrawl vs intoxication, CIWA 9 and for managment of hyponatremia 2.9,low again, f/u pm renal panel. continues to have tremors and tongue fasciculations #EtOH withdrawl vs #EtOH intoxication #Transaminitis 2/2 ETOH use (AST: ALT ratio 1.39) #EtOH use disorder Last Drink 06/20 No Hx Seizures / DTs Evidence of End-Organ Damage yes with elevated LFTs, lipase pt endorses drinking several beers over the past 5 days, presents with tremors, tongue wag and anxiety, pt continues to have agitation and tremors, pt expresses some desire to stop drinking PLAN - given Librium 25 mg TID - Check CMP, INR, Daily BMP+Mg, trend LFT - 1L NS, 100mg thiamine - Daily Thiamine, MVI qd - Insomnia: Melatonin 6mg - protocol - provide drinking cessation information at time of discharge. #electrolyte abnormalities #hypokalemia (2.9---> ) #hypomagnasemia given total of 80 ME KCl while in the ED, likely low 2/2 poor po intake and GI losses PLAN - follow up PM renal panel - replete as needed - daily cmp #normocytic anemia - low iron - ferritin high - B12 elevated #hyperlipidemia #thrombocytopenia coag panel wnl Dispo: observation, CIWA protocol Diet: Regular Bowel Reg: not indicated VTE ppx: heparin 5000 q12 GI ppx: protonox Code status: Full Plan discussed with Dr. Navarro, Dr Hayes, and Dr. Ankur Muñoz MD PGY1 Attending Provider Attestation/Addendum I have examined the patient, reviewed labs and imaging findings, discussed the case with the resident(s), and reviewed entered orders. I agree with the plan of care as outlined in this note, with these additional summaries/recommendations: Patient is a 49-year-old male with a medical history of alcohol use disorder presents to [facility] emergency department on 06/21/2025 with nonspecific complaints of bilateral shaking, nausea/vomiting, and abdominal pain. Patient seen at bedside. No acute overnight events. Patient continues to be in alcohol withdrawal. CIWA 16 points this morning. Continue scheduled Librium. Continue CIWA protocol for alcohol withdrawal. Patient has not had a drink in approximately 48 hours now and does not appear to be in DT at this time although we will monitor closely for worsening withdrawal symptoms as patient is high risk. Patient does not express desire to quit although did ask for a beer this morning. No history of cirrhosis although patient likely has a component of hepatocellular disease from chronic alcohol use. Patient was counseled on alcohol cessation. Mild hypokalemia and hypocalcemia present, replacement given and follow-up repeat levels. Thrombocytopenia possibly secondary to liver synthetic dysfunction although mild at this time and can be followed up outpatient. coordinator of rehabilitation services referral once mentation is more improved. Please see residents note for additional details and management. Dr. Ankur MD
[2025-06-23] MEDS: HEPARIN SOD INJ 5000 UNIT/ML VIAL SC ×2 (08:07→21:52)
[2025-06-23] MEDS: THIAMINE 100 MG TABLET PO (08:08)
[2025-06-23] MEDS: Magnesium Sulfate 4 GM Ivpb 4 GM/50 ML BAG IV (08:08)
[2025-06-23] MEDS: MULTIVITAMINS TABLET 1 TAB PO (08:08)
[2025-06-23] MEDS: ACETAMINOPHEN 325 MG TABLET PO (09:16)
[2025-06-23] MEDS: METOCLOPRAMIDE INJ 5 MG/ML VIAL 2 ML 10 MG IVP (09:16)
--- NOTE | 2025-06-23 10:03 | PC.RT ---
Rounding: Still going through Alcohol W/D, on CIWA protocol
[2025-06-23] MEDS: SODIUM CHLORIDE 0.9% 1000 ML 1,000 ML 100 ML IV ×2 (10:33→19:53)
[2025-06-23] MEDS: BALSAM PERU/CASTOR OIL (Venelex) 60 GM TUBE TOP ×2 (10:33→21:54)
[2025-06-23 14:23] LABS: Albumin, Serum 3.8 gm/dL (3.5-5.0); Anion Gap 12 (7-16); BUN/Creatinine Ratio 9 Ratio (12-20); Blood Urea Nitrogen 6 mg/dL (9-23); Calcium 8.8 mg/dL (8.3-10.6); Calcium (Corrected) 9.0 mg/dL (8.5-10.1); Carbon Dioxide 23.6 mMol/L (20.0-31.0); Chloride 99 mMol/L (98-107); Creatinine (Component) 0.7 mg/dL (0.6-1.3); Estimated Creatinine Clearance 95.5 mL/min (>60); Glucose 129 mg/dL (74-106); Osmolality,Calculated 269 (275-295); Phosphorous 3.0 mg/dL (2.4-5.1); Potassium 3.5 mMol/L (3.4-5.1); Sodium 135 mMol/L (136-145); eGFR > 60 See Note
--- NOTE | 2025-06-23 19:28 | PC.NURSE ---
Patient became combative, repeatedly attempting to get out of bed and ripped out IV line. Patient is confused and oriented to self only. Non-redirectable despite interventions. MD notified; bilateral restrains ordered and applied. Following restraint placement, patient became increasingly agitated with sustained tachycardia, heart raising to 180's. CIWA score assessed at 28. MD notified again. Plan initiated for patient to transfer to ICU for higher level of care and monitoring. Report given to GINI Osorio.
--- NOTE | 2025-06-23 19:40 | ESCONSULT_ITS ---
HPI - Staffing And Scheduling Coordinator Consult Data of Consult Requesting Physician: Vamshi Brown MD Primary Care Provider: Physician No Primary/Family Consult Narrative History of present illness: Patient is a 49 year old male with no significant past medical history who presented with nausea/vomiting, abdominal pain, diarrhea, tremors, anxiety. Subsequently admitted with with ETOH withdrawal. He was originally placed on med/surg with CIWA 28. Patient required multiple doses of diazepam throughout the day however patient without IV access and has been without any treatment for the previous 3 hours. Review of regimen shows multiple doses of diazepam (last 4:30 PM) with scheduled librium and gabapentin in plan of care. Patient has remained agitated not compliant with care. Initial alcohol level was 588, last check was 196. Patient without any significant elevation of lipase or amylase. No other significant chemistry abnormality found to be severe hypokalemia secondary to significant GI losses. Given 2 L of lactated Ringer's and 1 L normal saline emergency department. Continues to have aggressive behavior, confusion, and requires restraints. Sitter in place but difficult to redirect with kicking of staff. Patient transferred to the ICU for closer monitoring and escalation of withdrawal protocol. cc:: cc: Vamshi Brown MD Critical Care Note Critical care time (min.): 35 Review of Systems Review of Systems ROS Unobtainable: unobtainable due to mental status Past Medical History Past Medical History Comments PMH COMMENT: Past medical history/past surgical history reviewed in chart. Noncontributory family history. Social history available in chart remains limited with no clear evaluation of alcohol use history. UDS was negative on admission. Meds Home Medications and Allergies Home Medications ?Medication ?Instructions ?Recorded ?Confirmed ?Type No Known Home Medications 06/21/25 0901/10 History Allergies Allergy/AdvReac Type Severity Reaction Status Date / Time No Known Allergies Allergy Unverified 06/21/25 09:14 Exam Vital Signs Temp Pulse Resp BP Pulse Ox O2 Del Method 98.9 F 90 17 98/68 99 Room Air 06/24/25 04:00 06/24/25 06:00 06/24/25 06:00 06/24/25 06:00 06/24/25 06:00 06/23/25 04:00 Narrative Exam GEN: Agitated, disoriented to place/ time, responds appropriately to self HEENT: Dry mucus membranes, spitting at staff/ myself CVS: S1/S2+ tachycardic, regular rhythm PULM: Limite dexam due to agitation, no crackles/ rhonchi anteriorly ABD: soft, ND, NT EXT: no pedal edema, no clubbing/ cyanosis NEURO: nonfocal on exam grossly PSYCH: Combatative, hallucinations Physical Exam Completion Physical Exam Complete?: Yes Results - Staffing And Scheduling Coordinator Labs 06/25/25 05:59 06/25/25 05:59 Labs: Short CBC 06/24/25 Range/Units 04:56 WBC 4.9 (3.8-10.6) Thou/mm3 Hgb 12.5 L (13.5-16.0) g/dL Hct 36.0 L (41.0-53.0) % Plt Count 173 D (140-440) Thou/mm3 BMP 06/23/25 06/24/25 13:50 04:56 Sodium 135 L 139 Potassium 3.5 D 2.9 L D Chloride 99 102 Carbon Dioxide 23.6 24.4 BUN 6 L 6 L Creatinine 0.7 0.6 Glucose 129 H 112 H Calcium 8.8 8.8 Liver Function 06/23/25 06/24/25 Range/Units 13:50 04:56 Total Bilirubin 0.7 (0.3-1.2) mg/dL AST 76 H (0-34) U/L ALT 78 H (10-49) U/L Alkaline Phosphatase 104 D (46-116) U/L Albumin 3.8 3.5 (3.5-5.0) gm/dL Assessment & Plan Additional Plan Additional Plan: Alcohol Withdrawal Syndrome Loading dose of phenobarbital after IV access achieved in ICU PRN Diazepam overnight Maintain on ETCO2 monitoring Avoid oversedation and will plan for resumption of phenobarbital taper based on assessment in morning Add on precedex if needed Seizure precautions Maintain HOB elevation High dose thiamine TID Should remain in restraints for now due to agitated delirium and risk of harm to self or to staff Provider Notation Provider Notation: Although this document has been carefully reviewed, there may still be some phonetic and other typographical errors. These errors are purely grammatical due to imperfections in the software program and should not be construed in any way to compromise the substance of the patient's medical care during this visit. Thank you for the opportunity and privilege in assisting you with this patient's care and management. Critical care time Critical Care Time Attestation: Patient at significant risk for further morbidity and mortality warranting close monitoring and care only available in the ICU. Total critical care time: 35 minutes for review of physiologic parameters, directing plan of care, coordination of care with other specialists. This is exclusive of time spent teaching of staff performing separate billable procedures. Critical care services for delirium tremens/alcohol withdrawal syndrome and hypokalemia.
[2025-06-23] MEDS: PHENOBARBITAL IV (19:54)
[2025-06-23] MEDS: SODIUM CHLORIDE 0.9% IV (19:54)
[2025-06-23] MEDS: DIAZEPAM INJ 5 MG/ML VIAL 2 ML 20 MG IVP ×2 (20:37→22:40)
[2025-06-23] MEDS: THIAMINE INJ 500 MG in SODIUM CHLORIDE 0.9% 100 ML 210 MG IV (21:54)
[2025-06-24] VITALS (15 sets, daily range): BP systolic 93–152; BP diastolic 61–92; PULSE 80–127; RESP 15–23; TEMP 36.5–37.2; O2SAT 97–100; BMI 27.1; BMI 27.0
[2025-06-24] MEDS: DIAZEPAM INJ 5 MG/ML VIAL 2 ML 20 MG IVP ×2 (01:08→08:24)
[2025-06-24] MEDS: SODIUM CHLORIDE 0.9% 1000 ML 1,000 ML 100 ML IV (04:30)
[2025-06-24] MEDS: THIAMINE INJ 500 MG in SODIUM CHLORIDE 0.9% 100 ML 210 MG IV ×3 (05:45→21:25)
[2025-06-24 05:50] LABS: Basophils # (Auto) 0.0 Thou/mm3 (0.0-0.2); Basophils % (Auto) 1 % (0-2.5); Eosinophils # (Auto) 0.1 Thou/mm3 (0.0-0.5); Eosinophils % (Auto) 1 % (0-10); Hematocrit 36.0 % (41.0-53.0); Hemoglobin 12.5 g/dL (13.5-16.0); Immature Granulocytes Auto 0.04 Thou/mm3 (0.00-0.00); Lymphocytes # (Auto) 0.6 Thou/mm3 (1.0-4.8); Lymphocytes % (Auto) 12 % (10-50); Mean Corpuscular HGB Conc 34.7 g/dl (31.0-37.0); Mean Corpuscular Hemoglobin 32.5 pg (25.0-35.0); Mean Corpuscular Volume 94 fL (80-100); Monocytes # (Auto) 0.9 Thou/mm3 (0.0-0.8); Monocytes % (Auto) 19 % (0-12); Neutrophils # (Auto) 3.3 Thou/mm3 (1.8-7.7); Neutrophils % (Auto) 67 % (37-80); Nucleated Red Blood Cell # 0.00 Thou/mm3 (0.00-0.00); Nucleated Red Blood Cell % 0 /100 WBC (0); Platelet Count 173 Thou/mm3 (140-440); RDW Standard Deviation 55.4 fL (35.1-43.9); Red Blood Count 3.85 Miln/mm3 (4.50-5.90); White Blood Count 4.9 Thou/mm3 (3.8-10.6)
[2025-06-24 06:20] LABS: Alanine Aminotransferase 78 U/L (10-49); Albumin, Serum 3.5 gm/dL (3.5-5.0); Albumin/Globulin Ratio 1.4 (1.2-2.2); Alkaline Phosphatase 104 U/L (46-116); Anion Gap 13 (7-16); Aspartate Amino Transferase 76 U/L (0-34); BUN/Creatinine Ratio 10 Ratio (12-20); Bilirubin,Total 0.7 mg/dL (0.3-1.2); Blood Urea Nitrogen 6 mg/dL (9-23); Calcium 8.8 mg/dL (8.3-10.6); Calcium (Corrected) 9.2 mg/dL (8.5-10.1); Carbon Dioxide 24.4 mMol/L (20.0-31.0); Chloride 102 mMol/L (98-107); Creatinine (Component) 0.6 mg/dL (0.6-1.3); Estimated Creatinine Clearance 111.4 mL/min (>60); Globulin 2.5 gm/dL (2.3-3.5); Glucose 112 mg/dL (74-106); Magnesium 1.9 mg/dL (1.6-2.6); Osmolality,Calculated 276 (275-295); Phosphorous 3.4 mg/dL (2.4-5.1); Potassium 2.9 mMol/L (3.4-5.1); Sodium 139 mMol/L (136-145); Total Protein 6.0 gm/dL (5.7-8.2); eGFR > 60 See Note
--- NOTE | 2025-06-24 07:00 | PC.NURSE ---
Per MD MART, hold Valium order (for CIWA protocol) at this time. New medication order received. Plan of care ongoing.
[2025-06-24] MEDS: HEPARIN SOD INJ 5000 UNIT/ML VIAL SC ×3 (07:40→21:25)
[2025-06-24] MEDS: Magnesium Sulfate 2 GM Ivpb 2 GM/50 ML BAG IV (07:42)
[2025-06-24] MEDS: POTASSIUM CHL 10 mEq IVPB 10 MEQ/100 ML BAG 100 MEQ IV ×4 (07:42→10:52)
[2025-06-24] MEDS: PHENobarbital Inj 130 MG, SODIUM CHLORIDE 0.9% FLUSH 12 ML IVP ×4 (07:46→23:27)
[2025-06-24] MEDS: BALSAM PERU/CASTOR OIL (Venelex) 60 GM TUBE TOP ×2 (08:02→20:10)
[2025-06-24] MEDS: MULTIVITAMINS TABLET 1 TAB PO (08:26)
[2025-06-24] MEDS: SODIUM CHLORIDE 0.45% IV ×2 (09:08→20:10)
[2025-06-24] MEDS: POT CHL ADDITIVE IV ×2 (09:08→20:10)
--- NOTE | 2025-06-24 14:15 | ESPR_ITS ---
<Statement entered by Narcisa Hayes MD - 06/25/25 16:27> Patient seen and examined at bedside. No acute overnight events reported. Patient continues to be on phenobarbital Q6 following CIWA protocol. Last CIWA has been 15, and very sleepy on exam. Will titrate phenobarbital as CIWA decreases. Anticipate discharge within 48 hours. I discussed with and supervised the corporate development intern physician who took care of this patient. I personally saw and examined the patient and discussed the assessment and plan with the entire medicine team, including my attending Dr. Pascual, I agree with most of the assessment and plan as documented below Narcisa Hayes M.D. PGY-3 Disclaimer: Despite multiple revisions, due to the dictation software being used, the document bellow may not be free of grammatical errors including phonetic/typographic errors. However, this does not deter from our commitment to providing health care in the patient's best interest in mind. Documentation for date of: 06/24/25 Subjective Subjective Interval history: Mr. Bernardo is a 49-year-old gentleman with no significant past medical history he is not have a primary care doctor reports intermittently being seen in the emergency department and urgent care. He presents to the emergency department with alcohol intoxication he was brought in due to public disturbance. He states that he has never been in the hospital for alcohol-related seizures. He states that he had an additional $900 because he had not yet paid bills and went into a 5 to 6-day binge drinking session. He endorses drinking several beers over the past few days. his last drink was a few hours before presenting to the ED yesterday. 06/23/2025: pt with low fever to 99, given 320 apap, BMP with Na 2.9, given 40 ME KCl, pm renal panel pending. CIWA elevated to 16, given librium, diazapam, and lorazapam. pt gait is unsteady, unable to ambulate to toilet. no nausea or vomiting symptoms. Patient transferred to the ICU for closer monitoring and escalation of withdrawal protocol. 06/24/2025: pt downgraded from the ICU, continues on phenobarb drip, d/c librium. CIWA protocol. Last CIWA score was 15, sleeping on exam today. Exam Vital Signs Temp Pulse Resp BP Pulse Ox O2 Del Method 98.0 F 80 19 109/74 99 Room Air 06/24/25 08:00 06/24/25 12:00 06/24/25 11:00 06/24/25 11:00 06/24/25 11:00 06/23/25 04:00 Narrative Exam Gen: Well-developed male. HEENT: NCAT, PERRLA, EOMI, MMM, anicteric conjunctivae. CVS: normal S1 and S2. RRR. No M/R/G. Resp: CTA B/L. No rhonchi, rales, crackles or wheezing. Abd: soft, non-tender, non-distended. BS+ in all 4 quadrants. MSK: Good ROM in BUE & BLE. No edema or rash. Neuro: pt is sleeping, noted to be aggitated at times Objective Labs 06/25/25 05:59 06/25/25 05:59 Labs: Laboratory Results - last 24 hr 06/23/25 06/24/25 13:50 04:56 WBC 4.9 RBC 3.85 L Hgb 12.5 L Hct 36.0 L MCV 94 MCH 32.5 MCHC 34.7 RDW Std Deviation 55.4 H Plt Count 173 D Neut % (Auto) 67 Lymph % (Auto) 12 [place] % (Auto) 19 H Eos % (Auto) 1 Baso % (Auto) 1 Neut # (Auto) 3.3 Lymph # (Auto) 0.6 L [place] # (Auto) 0.9 H Eos # (Auto) 0.1 Baso # (Auto) 0.0 Immature Gran # (Auto) 0.04 H Absolute Nucleated RBC 0.00 Immature Gran % 1 H Nucleated RBC % 0 Sodium 135 L 139 Potassium 3.5 D 2.9 L D Chloride 99 102 Carbon Dioxide 23.6 24.4 Anion Gap 12 13 BUN 6 L 6 L Creatinine 0.7 0.6 Estim Creat Clear Calc 95.5 111.4 eGFR > 60 > 60 BUN/Creatinine Ratio 9 L 10 L Glucose 129 H 112 H Calculated Osmolality 269 L 276 Calcium 8.8 8.8 Corrected Calcium 9.0 9.2 Phosphorus 3.0 3.4 Magnesium 1.9 Total Bilirubin 0.7 AST 76 H ALT 78 H Alkaline Phosphatase 104 D Total Protein 6.0 Albumin 3.8 3.5 Globulin 2.5 Albumin/Globulin Ratio 1.4 Quality Measures Quality Measures VTE prophylaxis Assessment & Plan Assessment Current Active Medications: Generic Name Dose Route Start Last Admin Trade Name Freq PRN Reason Stop Dose Admin [place] Oil 0 gm 06/21/25 21:00 06/24/25 08:02 Balsam [place] Oil (Venelex) 60 Gm Tube TOP 07/21/25 20:59 1 applicatio BID VIVIANA Administration Phenobarbital Sodium 130 mg/ 0 mg 06/24/25 07:30 06/24/25 13:31 Sodium Chloride 12 ml IVP 07/08/25 07:29 130 mg Q6HR VIVIANA Administration Diazepam 10 mg 06/23/25 19:05 Diazepam Inj 5 Mg/Ml Vial 2 Ml IVP 06/26/25 09:06 Q2HR PRN CIWA SCORE 15-19 Diazepam 20 mg 06/23/25 19:11 06/24/25 08:24 Diazepam Inj 5 Mg/Ml Vial 2 Ml IVP 06/28/25 19:10 20 mg Q2H PRN Administration CIWA >20 Heparin Sodium (Porcine) 5,000 unit 06/24/25 07:30 06/24/25 13:45 Heparin Sod Inj 5000 Unit/Ml Vial SC 07/08/25 07:29 5,000 unit Q8HR VIVIANA Administration Thiamine HCl 500 mg/ Sodium 105 mls @ 210 mls/hr 06/23/25 22:00 06/24/25 13:45 Chloride IV 07/23/25 21:59 210 mls/hr TID VIVIANA Administration Potassium Chloride 40 meq/ 1,020 mls @ 100 mls/hr 06/24/25 07:21 06/24/25 09:08 Sodium Chloride IV 07/24/25 07:20 100 mls/hr .[id number] VIVIANA Administration Multivitamins 1 tab 06/22/25 09:00 06/24/25 08:26 Multivitamins Tablet PO 07/22/25 08:59 1 tab QDAY VIVIANA Administration Plan Mr. Bryan is a 49-year-old gentleman with no significant past medical history he does not have primary care doctor who presented to the ED with alcohol withdrawal (no hx of delerium tremens) who was admitted for etoh withdrawl vs intoxication, and for managment of hyponatremia 2.9 upgraded to icu for phenobarb drip and worsening ciwa scores, now downgraded, continues on pheno mary. #EtOH withdrawl vs #EtOH intoxication #Transaminitis 2/2 ETOH use (AST: ALT ratio 1.39) #EtOH use disorder Last Drink 06/20 No Hx Seizures / DTs Evidence of End-Organ Damage yes with elevated LFTs, lipase pt endorses drinking several beers over the past 5 days, presents with tremors, tongue wag and anxiety, pt continues to have agitation and tremors, pt expresses some desire to stop drinking pt was upgraded to ICU for increased monitoring and escalation of etoh management, then downgraded for continued managment PLAN - d/c Librium 25 mg TID - phenobarbitol drip, - Check CMP, INR, Daily BMP+Mg, trend LFT - 1L NS, - Daily Thiamine IV - CIWA protocol - provide drinking cessation information at time of discharge. - pt consult for gait instability #electrolyte abnormalities #hypokalemia (2.9---> ) #hypomagnasemia likely low 2/2 poor po intake and GI losses PLAN - follow up PM renal panel - replete as needed - daily cmp #normocytic anemia - low iron - ferritin high - B12 elevated #hyperlipidemia #thrombocytopenia coag panel wnl Dispo: ICU downgraded to floors, cont on phenobarb, ciwa scores still high, CIWA protocol Diet: Regular Bowel Reg: not indicated VTE ppx: heparin 5000 q12 GI ppx: protonox 40 IV Code status: Full Plan discussed with Dr. Navarro, Dr Hayes, and Dr. Ankur Muñoz MD PGY1 Attending Provider Attestation/Addendum I have examined the patient, reviewed labs and imaging findings, discussed the case with the resident(s), and reviewed entered orders. I agree with the plan of care as outlined in this note, with these additional summaries/recommendations: Patient is a 49-year-old male with a medical history of alcohol use disorder presents to [facility] emergency department on 06/21/2025 with nonspecific complaints of bilateral shaking, nausea/vomiting, and abdominal pain. Patient seen at bedside. Overnight patient had multiple rapid responses and appears to have progressed to delirium tremens. CIWA reached as high as 35. Patient was upgraded to the ICU overnight and phenobarbital was added to regimen. Today patient is much improved with CIWA down to 14. Patient continues to be in alcohol withdrawal. Continue CIWA protocol for alcohol withdrawal, phenobarbital, and IV thiamine. 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 Patient was counseled on alcohol cessation. Thrombocytopenia possibly secondary to liver synthetic dysfunction although mild at this time and can be followed up outpatient. creative services writer referral once mentation is more improved. Please see residents note for additional details and management. Dr. Ankur MD
--- NOTE | 2025-06-24 14:20 | ESPR_ITS ---
Documentation for date of: 06/24/25 Subjective Subjective Interval history: Patient was seen and examined at the bedside. Overnight patient was receiving scheduled doses of phenobarbital with some additional diazepam as needed for breakthrough agitation. The morning patient appears sleepy and a little bit confused, he does not try to leave the bed or is not combative, however CIWA score remains high. Patient will be downgraded to medical floor for continuation of care. Exam Vital Signs Temp Pulse Resp BP Pulse Ox O2 Del Method 98.0 F 80 19 109/74 99 Room Air 06/24/25 08:00 06/24/25 12:00 06/24/25 11:00 06/24/25 11:00 06/24/25 11:00 06/23/25 04:00 Narrative Exam Gen: Well-developed male. HEENT: NCAT, PERRLA, EOMI, MMM, anicteric conjunctivae. CVS: normal S1 and S2. RRR. No M/R/G. Resp: CTA B/L. No rhonchi, rales, crackles or wheezing. Abd: soft, non-tender, non-distended. BS+ in all 4 quadrants. MSK: Good ROM in BUE & BLE. No edema or rash. Neuro: appears confused, does not follow commands. Objective Labs 06/25/25 05:59 06/25/25 05:59 Labs: Laboratory Results - last 24 hr 06/23/25 06/24/25 13:50 04:56 WBC 4.9 RBC 3.85 L Hgb 12.5 L Hct 36.0 L MCV 94 MCH 32.5 MCHC 34.7 RDW Std Deviation 55.4 H Plt Count 173 D Neut % (Auto) 67 Lymph % (Auto) 12 [place] % (Auto) 19 H Eos % (Auto) 1 Baso % (Auto) 1 Neut # (Auto) 3.3 Lymph # (Auto) 0.6 L [place] # (Auto) 0.9 H Eos # (Auto) 0.1 Baso # (Auto) 0.0 Immature Gran # (Auto) 0.04 H Absolute Nucleated RBC 0.00 Immature Gran % 1 H Nucleated RBC % 0 Sodium 135 L 139 Potassium 3.5 D 2.9 L D Chloride 99 102 Carbon Dioxide 23.6 24.4 Anion Gap 12 13 BUN 6 L 6 L Creatinine 0.7 0.6 Estim Creat Clear Calc 95.5 111.4 eGFR > 60 > 60 BUN/Creatinine Ratio 9 L 10 L Glucose 129 H 112 H Calculated Osmolality 269 L 276 Calcium 8.8 8.8 Corrected Calcium 9.0 9.2 Phosphorus 3.0 3.4 Magnesium 1.9 Total Bilirubin 0.7 AST 76 H ALT 78 H Alkaline Phosphatase 104 D Total Protein 6.0 Albumin 3.8 3.5 Globulin 2.5 Albumin/Globulin Ratio 1.4 Quality Measures Quality Measures VTE prophylaxis Assessment & Plan Assessment Current Active Medications: Generic Name Dose Route Start Last Admin Trade Name Freq PRN Reason Stop Dose Admin Balsam [place] Oil 0 gm 06/21/25 21:00 06/24/25 08:02 Balsam [place] Oil (Venelex) 60 Gm Tube TOP 07/21/25 20:59 1 applicatio BID VIVIANA Administration Phenobarbital Sodium 130 mg/ 0 mg 06/24/25 07:30 06/24/25 13:31 Sodium Chloride 12 ml IVP 07/08/25 07:29 130 mg Q6HR VIVIANA Administration Diazepam 10 mg 06/23/25 19:05 Diazepam Inj 5 Mg/Ml Vial 2 Ml IVP 06/26/25 09:06 Q2HR PRN CIWA SCORE 15-19 Diazepam 20 mg 06/23/25 19:11 06/24/25 08:24 Diazepam Inj 5 Mg/Ml Vial 2 Ml IVP 06/28/25 19:10 20 mg Q2H PRN Administration CIWA >20 Heparin Sodium (Porcine) 5,000 unit 06/24/25 07:30 06/24/25 13:45 Heparin Sod Inj 5000 Unit/Ml Vial SC 07/08/25 07:29 5,000 unit Q8HR VIVIANA Administration Thiamine HCl 500 mg/ Sodium 105 mls @ 210 mls/hr 06/23/25 22:00 06/24/25 13:45 Chloride IV 07/23/25 21:59 210 mls/hr TID VIVIANA Administration Potassium Chloride 40 meq/ 1,020 mls @ 100 mls/hr 06/24/25 07:21 06/24/25 09:08 Sodium Chloride IV 07/24/25 07:20 100 mls/hr .[id number] VIVIANA Administration Multivitamins 1 tab 06/22/25 09:00 06/24/25 08:26 Multivitamins Tablet PO 07/22/25 08:59 1 tab QDAY VIVIANA Administration Plan Mr. Bryan is a 49-year-old gentleman with no significant past medical history who presented to the ED with alcohol withdrawal symptoms, was admitted for etoh withdrawal. His CIWA was significantly elevated despite treatment and he was upgraded to ICU for closer monitoring and aggressive CIWA management. Neuro: #EtOH withdrawal. #EtOH use disorder. Last Drink 06/20. No Hx Seizures / DTs. Evidence of End-Organ Damage yes with elevated LFTs, lipase. pt endorses drinking several beers over the past 5 days, presents with tremors, tongue wag and anxiety. pt continues to have agitation and tremors, pt expresses some desire to stop drinking. Plan: - phenobarbital 130 mg Q6HR, wean off when appropriate. - Daily Thiamine, MVI qd. - CIWA protocol. - provide drinking cessation information at time of discharge. Cardiovascular: #Hyperlipidemia. Consider starting statin when appropriate if ASCVD risk score is high. Respiratory: No active problems. Gastrointestinal: #Transaminitis 2/2 ETOH use. AST:ALT ratio 1.39. Improving. Plan: -continue monitoring with daily labs. Renal: #Electrolyte abnormalities. #Hypokalemia. #Hypomagnasemia. Given total of 80 ME KCl while in the ED. Likely low 2/2 poor po intake and GI losses. Plan: - replete as needed. - daily cmp. Endocrine: No active problems. Infectious Disease: No active problems. Hematology/Oncology: #Normocytic anemia. #Thrombocytopenia, resolved. - low iron. - ferritin high. - B12 elevated. - coag panel wnl. Plan: - consider iron replacement when appropriate. Diet: NPO. DVT prophylaxis: Heparin. GI prophylaxis: none. Code status: FULL CODE. Disposition: ICU to telemetry for continuation of care. Plan of care discussed with ICU attending Dr. Brown. Hemant Gaines MD, PGY 3. Disclaimer: This note was dictated by speech recognition. Minor errors in night court magistrate may be present due to voice recognition software. Attending Provider Attestation/Addendum Patient seen and examined with above resident, Hemant Gaines MD. I agree with the findings, assessment, and plan of care as documented except for any differences below. Patient with significant improvement overnight with loading dose of phenobarbital with intermittent dosing of diazepam required. His CIWA score remains in appropriate range though he still in a significant window for worsening of his alcohol withdrawal should it be undertreated. Phenobarbital taper should be continued at this point. Patient's head of bed should remain elevated along with seizure precautions. Patient remains on appropriate prophylaxis and should be kept n.p.o. until his mentation improves. End-tidal CO2 monitoring confirms that patient has adequate ventilation with most recent values in high 20s. Electrolyte replacement should be aggressively done. No role for steroids for alcoholic hepatitis. High-dose thiamine should be continued for prevention of Wernicke's as it is unclear of patient's underlying nutritional status. Multivitamin can be continued once p.o. tolerant. Discussed with medicine, will be transferred back to telemetry. Total critical care time: I personally spent 40 minutes review of physiologic parameters, directing plan of care throughout the day, and coordination of care with other specialties. This is exclusive of time spent teaching of staff or performing separate billable procedures. Patient remained at significant risk for further morbidity and mortality warranting close monitoring care only available in the ICU. Critical care services required for alcohol withdrawal syndrome/delirium tremens, alcoholic hepatitis, and thrombocytopenia.
[2025-06-24 17:39] LABS: Albumin, Serum 3.6 gm/dL (3.5-5.0); Anion Gap 10 (7-16); BUN/Creatinine Ratio 8 Ratio (12-20); Blood Urea Nitrogen 5 mg/dL (9-23); Calcium 8.9 mg/dL (8.3-10.6); Calcium (Corrected) 9.2 mg/dL (8.5-10.1); Carbon Dioxide 23.9 mMol/L (20.0-31.0); Chloride 102 mMol/L (98-107); Creatinine (Component) 0.6 mg/dL (0.6-1.3); Estimated Creatinine Clearance 122.2 mL/min (>60); Glucose 88 mg/dL (74-106); Osmolality,Calculated 268 (275-295); Phosphorous 3.1 mg/dL (2.4-5.1); Potassium 3.9 mMol/L (3.4-5.1); Sodium 136 mMol/L (136-145); eGFR > 60 See Note
[2025-06-25] VITALS: BP 112/78; PULSE 121; PULSE 127; RESP 16; TEMP 36.8; O2SAT 97
[2025-06-25 04:00] VITALS: BP 118/71; PULSE 100; PULSE 101; RESP 14; TEMP 36.7; O2SAT 98
[2025-06-25 06:00] VITALS: BMI 27.0
[2025-06-25] MEDS: HEPARIN SOD INJ 5000 UNIT/ML VIAL SC ×3 (06:19→22:18)
[2025-06-25] MEDS: THIAMINE INJ 500 MG in SODIUM CHLORIDE 0.9% 100 ML 210 MG IV ×3 (06:20→22:16)
[2025-06-25] MEDS: PHENobarbital Inj 130 MG, SODIUM CHLORIDE 0.9% FLUSH 12 ML IVP ×2 (06:20→22:17)
[2025-06-25 06:27] LABS: Basophils # (Auto) 0.0 Thou/mm3 (0.0-0.2); Basophils % (Auto) 0 % (0-2.5); Eosinophils # (Auto) 0.1 Thou/mm3 (0.0-0.5); Eosinophils % (Auto) 1 % (0-10); Hematocrit 34.9 % (41.0-53.0); Hemoglobin 12.0 g/dL (13.5-16.0); Immature Granulocytes Auto 0.05 Thou/mm3 (0.00-0.00); Lymphocytes # (Auto) 1.0 Thou/mm3 (1.0-4.8); Lymphocytes % (Auto) 14 % (10-50); Mean Corpuscular HGB Conc 34.4 g/dl (31.0-37.0); Mean Corpuscular Hemoglobin 32.6 pg (25.0-35.0); Mean Corpuscular Volume 95 fL (80-100); Monocytes # (Auto) 1.5 Thou/mm3 (0.0-0.8); Monocytes % (Auto) 21 % (0-12); Neutrophils # (Auto) 4.6 Thou/mm3 (1.8-7.7); Neutrophils % (Auto) 63 % (37-80); Nucleated Red Blood Cell # 0.00 Thou/mm3 (0.00-0.00); Nucleated Red Blood Cell % 0 /100 WBC (0); Platelet Count 163 Thou/mm3 (140-440); RDW Standard Deviation 57.7 fL (35.1-43.9); Red Blood Count 3.68 Miln/mm3 (4.50-5.90); White Blood Count 7.3 Thou/mm3 (3.8-10.6)
[2025-06-25] MEDS: SODIUM CHLORIDE 0.45% IV ×2 (07:17→15:54)
[2025-06-25] MEDS: POT CHL ADDITIVE IV ×2 (07:17→15:54)
[2025-06-25 07:22] LABS: Alanine Aminotransferase 62 U/L (10-49); Albumin, Serum 3.5 gm/dL (3.5-5.0); Albumin/Globulin Ratio 1.4 (1.2-2.2); Alkaline Phosphatase 90 U/L (46-116); Anion Gap 11 (7-16); Aspartate Amino Transferase 55 U/L (0-34); BUN/Creatinine Ratio 8 Ratio (12-20); Bilirubin,Total 0.7 mg/dL (0.3-1.2); Blood Urea Nitrogen < 5 mg/dL (9-23); Calcium 8.4 mg/dL (8.3-10.6); Calcium (Corrected) 8.8 mg/dL (8.5-10.1); Carbon Dioxide 22.4 mMol/L (20.0-31.0); Chloride 98 mMol/L (98-107); Creatinine (Component) 0.6 mg/dL (0.6-1.3); Estimated Creatinine Clearance 122.2 mL/min (>60); Globulin 2.5 gm/dL (2.3-3.5); Glucose 90 mg/dL (74-106); Magnesium 1.6 mg/dL (1.6-2.6); Osmolality,Calculated 259 (275-295); Phosphorous 3.2 mg/dL (2.4-5.1); Potassium 3.8 mMol/L (3.4-5.1); Sodium 131 mMol/L (136-145); Total Protein 6.0 gm/dL (5.7-8.2); eGFR > 60 See Note
--- NOTE | 2025-06-25 07:23 | ESPR_ITS ---
Documentation for date of: 06/25/25 Subjective Subjective Interval history: Mr. bryan is a 49-year-old gentleman with no significant past medical history he is not have a primary care doctor reports intermittently being seen in the emergency department and urgent care. He presents to the emergency department with alcohol intoxication he was brought in due to public disturbance. He states that he has never been in the hospital for alcohol-related seizures. He states that he had an additional $900 because he had not yet paid bills and went into a 5 to 6-day binge drinking session. He endorses drinking several beers over the past few days. his last drink was a few hours before presenting to the ED yesterday. 06/23/2025: pt with low fever to 99, given 320 apap, BMP with Na 2.9, given 40 ME KCl, pm renal panel pending. CIWA elevated to 16, given librium, diazapam, and lorazapam. pt gait is unsteady, unable to ambulate to toilet. no nausea or vomiting symptoms. Patient transferred to the ICU for closer monitoring and escalation of withdrawal protocol. 06/24/2025: pt downgraded from the ICU, continues on phenobarb q6hr, d/c librium. CIWA protocol. Last CIWA score was 15, sleeping on exam today. 06/25/2025: patient seen and examined in tele. AM ciwa score 7, movements were very slowed, likely 2/2 phenobarb. changed frequency of phenobarb to TID from q6 given c/f over sedation, held afternoon dose, 2/2 pt sleeping (unable to assess ciwa). LFTs are downtrending, and mild hyponatremia noted Exam Vital Signs Temp Pulse Resp BP Pulse Ox O2 Del Method O2 Flow Rate 98.1 F 100 14 118/71 98 Nasal Cannula 2 06/25/25 04:00 06/25/25 04:00 06/25/25 04:00 06/25/25 04:00 06/25/25 04:00 06/25/25 00:00 06/25/25 00:00 Narrative Exam Gen: Well-developed male. somnolent yet arousable by voice and touch HEENT: NCAT, PERRLA, EOMI, MMM, anicteric conjunctivae. CVS: normal S1 and S2. RRR. No M/R/G. Resp: CTA B/L. No rhonchi, rales, crackles or wheezing. Abd: soft, non-tender, non-distended. BS+ in all 4 quadrants. RUQ contusion noted. MSK: Good ROM in BUE & BLE. No edema or rash. Neuro: pt is sleeping, when awake movements are bradykinetic. on phenobarb tid, Objective Labs 06/26/25 05:20 06/26/25 05:20 Labs: Laboratory Results - last 24 hr 06/24/25 06/25/25 17:00 05:59 WBC 7.3 D RBC 3.68 L Hgb 12.0 L Hct 34.9 L MCV 95 MCH 32.6 MCHC 34.4 RDW Std Deviation 57.7 H Plt Count 163 Neut % (Auto) 63 Lymph % (Auto) 14 [place] % (Auto) 21 H Eos % (Auto) 1 Baso % (Auto) 0 Neut # (Auto) 4.6 Lymph # (Auto) 1.0 [place] # (Auto) 1.5 H Eos # (Auto) 0.1 Baso # (Auto) 0.0 Immature Gran # (Auto) 0.05 H Absolute Nucleated RBC 0.00 Immature Gran % 1 H Nucleated RBC % 0 Sodium 136 131 L Potassium 3.9 D 3.8 Chloride 102 98 Carbon Dioxide 23.9 22.4 Anion Gap 10 11 BUN 5 L < 5 L Creatinine 0.6 0.6 Estim Creat Clear Calc 122.2 122.2 eGFR > 60 > 60 BUN/Creatinine Ratio 8 L 8 L Glucose 88 90 Calculated Osmolality 268 L 259 L Calcium 8.9 8.4 Corrected Calcium 9.2 8.8 Phosphorus 3.1 3.2 Magnesium 1.6 Total Bilirubin 0.7 AST 55 H ALT 62 H Alkaline Phosphatase 90 Total Protein 6.0 Albumin 3.6 3.5 Globulin 2.5 Albumin/Globulin Ratio 1.4 Quality Measures Quality Measures VTE prophylaxis Assessment & Plan Assessment Current Active Medications: Generic Name Dose Route Start Last Admin Trade Name Freq PRN Reason Stop Dose Admin Balsam Daren/[place] Oil 0 gm 06/21/25 21:00 06/24/25 20:10 Balsam [place] Oil (Venelex) 60 Gm Tube TOP 07/21/25 20:59 1 applicatio BID VIVIANA Administration Phenobarbital Sodium 130 mg/ 0 mg 06/24/25 07:30 06/25/25 06:20 Sodium Chloride 12 ml IVP 07/08/25 07:29 130 mg Q6HR VIVIANA Administration Diazepam 10 mg 06/23/25 19:05 Diazepam Inj 5 Mg/Ml Vial 2 Ml IVP 06/26/25 09:06 Q2HR PRN CIWA SCORE 15-19 Diazepam 20 mg 06/23/25 19:11 06/24/25 08:24 Diazepam Inj 5 Mg/Ml Vial 2 Ml IVP 06/28/25 19:10 20 mg Q2H PRN Administration CIWA >20 Heparin Sodium (Porcine) 5,000 unit 06/24/25 07:30 06/25/25 06:19 Heparin Sod Inj 5000 Unit/Ml Vial SC 07/08/25 07:29 5,000 unit Q8HR VIVIANA Administration Thiamine HCl 500 mg/ Sodium 105 mls @ 210 mls/hr 06/23/25 22:00 06/25/25 06:20 Chloride IV 07/23/25 21:59 210 mls/hr TID VIVIANA Administration Potassium Chloride 40 meq/ 1,020 mls @ 100 mls/hr 06/24/25 07:21 06/25/25 07:17 Sodium Chloride IV 07/24/25 07:20 100 mls/hr .[id number] VIVIANA Administration Multivitamins 1 tab 06/22/25 09:00 06/24/25 08:26 Multivitamins Tablet PO 07/22/25 08:59 1 tab QDAY VIVIANA Administration Pantoprazole Sodium 40 mg 06/25/25 09:00 Pantoprazole Inj 40 Mg Vial IVP 07/25/25 08:59 QDAY VIVIANA Plan Mr. Bryan is a 49-year-old gentleman with no significant past medical history he does not have primary care doctor who presented to the ED with alcohol withdrawal (no hx of delerium tremens) who was admitted for etoh withdrawl vs intoxication, and for managment of hyponatremia 2.9 upgraded to icu for phenobarb drip and worsening ciwa scores, now downgraded, continues on pheno mary. #EtOH withdrawl vs #EtOH intoxication #Transaminitis 2/2 ETOH use (AST: ALT ratio 1.39) #EtOH use disorder Last Drink 06/20 No Hx Seizures / DTs Evidence of End-Organ Damage yes with elevated LFTs, lipase pt endorses drinking several beers over the past 5 days, presented with tremors, tongue wag and anxiety, pt was upgraded to ICU for increased monitoring and escalation of etoh management, then downgraded for continued management, down titrating frequency of phenobarb doses. PLAN - d/c Librium 25 mg TID - phenobarbitol TID (held afternoon dose), consider BID if CIWAs low - Check CMP, Mg, Phos, trend LFT - 1L NS, - Daily Thiamine IV - CIWA protocol - provide drinking cessation information at time of discharge. - pt consult for gait instability #electrolyte abnormalities #hypokalemia (2.9---> 3.8) #hypomagnasemia #mild hyponatermia (131--> ) likely low 2/2 poor po intake and GI losses PLAN - follow up PM renal panel - replete as needed - daily cmp #normocytic anemia - low iron - ferritin high - B12 elevated #hyperlipidemia #thrombocytopenia coag panel wnl Dispo: ICU downgraded to floors,decreased frequency of phenobarb today, TID (held afternoon dose) from QID Diet: Regular Bowel Reg: not indicated VTE ppx: heparin 5000 q12 GI ppx: protonox 40 IV Code status: Full Plan discussed with Dr. Ankur Muñoz MD PGY1 Attending Provider Attestation/Addendum I have examined the patient, reviewed labs and imaging findings, discussed the case with the resident(s), and reviewed entered orders. I agree with the plan of care as outlined in this note, with these additional summaries/recommendations: Patient is a 49-year-old male with a medical history of alcohol use disorder presents to [facility] emergency department on 06/21/2025 with nonspecific complaints of bilateral shaking, nausea/vomiting, and abdominal pain. Patient seen at bedside. No acute overnight events. Today patient appears more somnolent and CIWA improving. We will decrease phenobarbital from every 6 hours to 3 times a day and continue to titrate as needed. Patient continues to be in alcohol withdrawal. Continue CIWA protocol for alcohol withdrawal, phenobarbital, and IV thiamine. 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 Patient was counseled on alcohol cessation. Thrombocytopenia possibly secondary to liver synthetic dysfunction although mild at this time and can be followed up outpatient. volunteer services coordinator referral once mentation is more improved. Please see residents note for additional details and management. Dr. Ankur MD
[2025-06-25 08:00] VITALS: PULSE 92
[2025-06-25] MEDS: MULTIVITAMINS TABLET 1 TAB PO (08:12)
[2025-06-25] MEDS: Magnesium Sulfate 4 GM Ivpb 4 GM/50 ML BAG IV (10:43)
[2025-06-25 12:00] VITALS: BP 96/65; PULSE 89; PULSE 90; RESP 19; TEMP 36.8; O2SAT 100
[2025-06-25] MEDS: BALSAM PERU/CASTOR OIL (Venelex) 60 GM TUBE TOP ×2 (14:13→20:55)
--- NOTE | 2025-06-25 14:59 | PC.SS ---
Rounding note: TID, d/c 1 day.
--- NOTE | 2025-06-25 15:05 | PC.PT ---
Attempted PT eval however Pt was sedated, deferred to following day.
[2025-06-25 16:00] VITALS: BP 93/71; PULSE 95; RESP 17; TEMP 36.5; O2SAT 98
[2025-06-25 20:00] VITALS: BP 98/66; PULSE 88; PULSE 97; RESP 12; TEMP 36.2; O2SAT 98
[2025-06-26] VITALS (7 sets, daily range): BP systolic 107–124; BP diastolic 68–85; PULSE 80–103; RESP 12–20; TEMP 36.1–36.4; O2SAT 97–100; BMI 23.5
[2025-06-26] MEDS: POT CHL ADDITIVE IV ×2 (02:45→12:27)
[2025-06-26] MEDS: SODIUM CHLORIDE 0.45% IV ×2 (02:45→12:27)
[2025-06-26] MEDS: HEPARIN SOD INJ 5000 UNIT/ML VIAL SC ×2 (05:52→20:15)
[2025-06-26] MEDS: THIAMINE INJ 500 MG in SODIUM CHLORIDE 0.9% 100 ML 210 MG IV ×3 (05:52→21:12)
[2025-06-26 06:08] LABS: Basophils # (Auto) 0.1 Thou/mm3 (0.0-0.2); Basophils % (Auto) 1 % (0-2.5); Eosinophils # (Auto) 0.1 Thou/mm3 (0.0-0.5); Eosinophils % (Auto) 3 % (0-10); Hematocrit 33.4 % (41.0-53.0); Hemoglobin 11.4 g/dL (13.5-16.0); Immature Granulocytes Auto 0.05 Thou/mm3 (0.00-0.00); Lymphocytes # (Auto) 1.3 Thou/mm3 (1.0-4.8); Lymphocytes % (Auto) 32 % (10-50); Mean Corpuscular HGB Conc 34.1 g/dl (31.0-37.0); Mean Corpuscular Hemoglobin 32.6 pg (25.0-35.0); Mean Corpuscular Volume 95 fL (80-100); Monocytes # (Auto) 0.8 Thou/mm3 (0.0-0.8); Monocytes % (Auto) 20 % (0-12); Neutrophils # (Auto) 1.8 Thou/mm3 (1.8-7.7); Neutrophils % (Auto) 43 % (37-80); Nucleated Red Blood Cell # 0.00 Thou/mm3 (0.00-0.00); Nucleated Red Blood Cell % 0 /100 WBC (0); Platelet Count 153 Thou/mm3 (140-440); RDW Standard Deviation 58.4 fL (35.1-43.9); Red Blood Count 3.50 Miln/mm3 (4.50-5.90); White Blood Count 4.1 Thou/mm3 (3.8-10.6)
[2025-06-26 06:30] LABS: Alanine Aminotransferase 53 U/L (10-49); Albumin, Serum 3.1 gm/dL (3.5-5.0); Albumin/Globulin Ratio 1.4 (1.2-2.2); Alkaline Phosphatase 86 U/L (46-116); Anion Gap 10 (7-16); Aspartate Amino Transferase 50 U/L (0-34); BUN/Creatinine Ratio 10 Ratio (12-20); Bilirubin,Total 0.4 mg/dL (0.3-1.2); Blood Urea Nitrogen < 5 mg/dL (9-23); Calcium 8.1 mg/dL (8.3-10.6); Calcium (Corrected) 8.8 mg/dL (8.5-10.1); Carbon Dioxide 23.9 mMol/L (20.0-31.0); Chloride 101 mMol/L (98-107); Creatinine (Component) 0.5 mg/dL (0.6-1.3); Estimated Creatinine Clearance 133.7 mL/min (>60); Globulin 2.2 gm/dL (2.3-3.5); Glucose 89 mg/dL (74-106); Magnesium 1.8 mg/dL (1.6-2.6); Osmolality,Calculated 266 (275-295); Phosphorous 3.6 mg/dL (2.4-5.1); Potassium 4.0 mMol/L (3.4-5.1); Sodium 135 mMol/L (136-145); Total Protein 5.3 gm/dL (5.7-8.2); eGFR > 60 See Note
[2025-06-26] MEDS: PHENobarbital Inj 130 MG, SODIUM CHLORIDE 0.9% FLUSH 12 ML IVP ×2 (08:11→20:15)
[2025-06-26] MEDS: MULTIVITAMINS TABLET 1 TAB PO (08:12)
[2025-06-26] MEDS: Magnesium Sulfate 4 GM Ivpb 4 GM/50 ML BAG IV (08:12)
[2025-06-26] MEDS: BALSAM PERU/CASTOR OIL (Venelex) 60 GM TUBE TOP ×2 (08:26→20:19)
--- NOTE | 2025-06-26 13:39 | PD.RESPRO ---
Documentation for date of: 06/26/25 Subjective Subjective Interval history: Mr. bryan is a 49-year-old gentleman with no significant past medical history he is not have a primary care doctor reports intermittently being seen in the emergency department and urgent care. He presents to the emergency department with alcohol intoxication he was brought in due to public disturbance. He states that he has never been in the hospital for alcohol-related seizures. He states that he had an additional $900 because he had not yet paid bills and went into a 5 to 6-day binge drinking session. He endorses drinking several beers over the past few days. his last drink was a few hours before presenting to the ED yesterday. 06/23/2025: pt with low fever to 99, given 320 apap, BMP with Na 2.9, given 40 ME KCl, pm renal panel pending. CIWA elevated to 16, given librium, diazapam, and lorazapam. pt gait is unsteady, unable to ambulate to toilet. no nausea or vomiting symptoms. Patient transferred to the ICU for closer monitoring and escalation of withdrawal protocol. 06/24/2025: pt downgraded from the ICU, continues on phenobarb q6hr, d/c librium. CIWA protocol. Last CIWA score was 15, sleeping on exam today. 06/25/2025: patient seen and examined in tele. AM ciwa score 7, movements were very slowed, likely 2/2 phenobarb. changed frequency of phenobarb to TID from q6 given c/f over sedation, held afternoon dose, 2/2 pt sleeping (unable to assess ciwa). LFTs are downtrending, and mild hyponatremia noted. 06/26/2025: patient seen and examined in tele, am CIWA 3, movements are back to normal speed. Patient received 1 dose of phenobarbital at 0800 hrs. CIWA stable at 3. less tremulous and no tongue wag on exam. he reports feeling like he sweat through the sheets. plan to wean off phenobarb Exam Vital Signs Temp Pulse Resp BP Pulse Ox O2 Del Method O2 Flow Rate 97.2 F 103 H 18 107/78 100 Room Air 1 06/26/25 12:00 06/26/25 12:00 06/26/25 12:06/26/25 12:06/26/25 12:00 06/26/25 12:00 06/25/25 12:00 Narrative Exam Gen: Well-developed male. alert and oriented x3 HEENT: NCAT, PERRLA, EOMI, MMM, anicteric conjunctivae. CVS: normal S1 and S2. RRR. No M/R/G. Resp: CTA B/L. No rhonchi, rales, crackles or wheezing. Abd: soft, non-tender, non-distended. BS+ in all 4 quadrants. MSK: Good ROM in BUE & BLE. No edema or rash. Neuro: is awake, non tremulous no tongue wag, spontaneously moving all 4 extrem Objective Labs 06/26/25 05:20 06/26/25 05:20 Labs: Laboratory Results - last 24 hr 06/26/25 05:20 WBC 4.1 D RBC 3.50 L Hgb 11.4 L Hct 33.4 L MCV 95 MCH 32.6 MCHC 34.1 RDW Std Deviation 58.4 H Plt Count 153 Neut % (Auto) 43 Lymph % (Auto) 32 [place] % (Auto) 20 H Eos % (Auto) 3 Baso % (Auto) 1 Neut # (Auto) 1.8 Lymph # (Auto) 1.3 [place] # (Auto) 0.8 Eos # (Auto) 0.1 Baso # (Auto) 0.1 Immature Gran # (Auto) 0.05 H Absolute Nucleated RBC 0.00 Immature Gran % 1 H Nucleated RBC % 0 Sodium 135 L Potassium 4.0 Chloride 101 Carbon Dioxide 23.9 Anion Gap 10 BUN < 5 L Creatinine 0.5 L Estim Creat Clear Calc 133.7 eGFR > 60 BUN/Creatinine Ratio 10 L Glucose 89 Calculated Osmolality 266 L Calcium 8.1 L Corrected Calcium 8.8 Phosphorus 3.6 Magnesium 1.8 Total Bilirubin 0.4 AST 50 H ALT 53 H Alkaline Phosphatase 86 Total Protein 5.3 L Albumin 3.1 L Globulin 2.2 L Albumin/Globulin Ratio 1.4 Quality Measures Quality Measures VTE prophylaxis Assessment & Plan Assessment Current Active Medications: Generic Name Dose Route Start Last Admin Trade Name Freq PRN Reason Stop Dose Admin Balsam [place]/Dale Oil 0 gm 06/21/25 21:00 06/26/25 08:26 Balsam [place]/Dale Oil (Venelex) 60 Gm Tube TOP 07/21/25 20:59 1 applicatio BID VIVIANA Administration Phenobarbital Sodium 130 mg/ 0 mg 06/26/25 09:00 06/26/25 08:11 Sodium Chloride 12 ml IVP 07/10/25 08:59 130 mg BID VIVIANA Administration Diazepam 20 mg 06/23/25 19:11 06/24/25 08:24 Diazepam Inj 5 Mg/Ml Vial 2 Ml IVP 06/28/25 19:10 20 mg Q2H PRN Administration CIWA >20 Heparin Sodium (Porcine) 5,000 unit 06/26/25 21:00 Heparin Sod Inj 5000 Unit/Ml Vial SC 07/10/25 20:59 Q12HR VIVIANA Potassium Chloride 40 meq/ 1,020 mls @ 100 mls/hr 06/24/25 07:21 06/26/25 12:27 Sodium Chloride IV 07/24/25 07:20 100 mls/hr .[id number] VIVIANA Administration Thiamine HCl 500 mg/ Sodium 105 mls @ 210 mls/hr 06/26/25 14:00 Chloride IV 07/23/25 21:59 TID VIVIANA Multivitamins 1 tab 06/22/25 09:00 06/26/25 08:12 Multivitamins Tablet PO 07/22/25 08:59 1 tab QDAY VIVIANA Administration Pantoprazole Sodium 40 mg 06/25/25 09:00 06/26/25 08:11 Pantoprazole Inj 40 Mg Vial IVP 07/25/25 08:59 40 mg QDAY VIVIANA Administration Plan Mr. Bryan is a 49-year-old gentleman with no significant past medical history he does not have primary care doctor who presented to the ED with alcohol withdrawal (no hx of delerium tremens) who was admitted for etoh withdrawl vs intoxication, and for managment of hyponatremia 2.9 upgraded to icu for phenobarb drip and worsening ciwa scores, now downgraded, weaning pheno mary, one dose at 0800, held pm dose #EtOH withdrawl vs #EtOH intoxication #Transaminitis 2/2 ETOH use (AST: ALT ratio 1.39)- downtrending #EtOH use disorder Last Drink 06/20 No Hx Seizures / DTs Evidence of End-Organ Damage yes with elevated LFTs, lipase pt endorses drinking several beers over the past 5 days, presented with tremors, tongue wag and anxiety, pt was upgraded to ICU for increased monitoring and escalation of etoh management, then downgraded for continued management, down titrating frequency of phenobarb doses. PLAN - d/c Librium 25 mg TID - phenobarbitol dose at 0800, PM doses held CIWA score stable at 3 - Check CMP, Mg, Phos, trend LFT - LR 85 cc/hr - Daily Thiamine IV - [facility] protocol - provide drinking cessation information at time of discharge. - PT eval pending #electrolyte abnormalities #hypokalemia (2.9--->4.0) #hypomagnasemia #mild hyponatermia (131--> 135) likely low 2/2 poor po intake and GI losses PLAN - follow up PM renal panel - replete as needed - daily cmp #normocytic anemia - low iron - ferritin high - B12 elevated #hyperlipidemia #thrombocytopenia coag panel wnl Dispo: decreased frequency of phenobarb today, BID (held afternoon dose)CIWA stable at 3, possible d/c tomorrow Diet: Regular Bowel Reg: not indicated VTE ppx: heparin 5000 q12 GI ppx: protonox 40 IV Code status: Full Plan discussed with Dr. Ankur Muñoz MD PGY1 Attending Provider Attestation/Addendum I have examined the patient, reviewed labs and imaging findings, discussed the case with the resident(s), and reviewed entered orders. I agree with the plan of care as outlined in this note, with these additional summaries/recommendations: Patient is a 49-year-old male with a medical history of alcohol use disorder presents to [facility] emergency department on 06/21/2025 with nonspecific complaints of bilateral shaking, nausea/vomiting, and abdominal pain. Patient seen at bedside. No acute overnight events. Patient's mentation continues to improve and delirium tremens resolving. CIWA down to 7 on phenobarbital. We will attempt to wean off phenobarbital today. Continue [facility] protocol for alcohol withdrawal and IV thiamine. 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 Patient was counseled on alcohol cessation. 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 If alcohol withdrawal continues to improve then anticipate discharge in the next 24 to 48 hours. Please see residents note for additional details and management. Dr. Ankur MD
[2025-06-26] MEDS: RINGERS LACTATED 1000 ML 1,000 ML 85 ML IV (15:34)
--- NOTE | 2025-06-26 17:28 | PC.PT ---
Patient is safe to use a bedside commode with 1 staff assist. RN made aware.
[2025-06-27] VITALS: BP 108/74; PULSE 87; PULSE 92; RESP 16; TEMP 37.4; O2SAT 98
[2025-06-27] MEDS: RINGERS LACTATED 1000 ML 1,000 ML 85 ML IV (03:47)
[2025-06-27 04:00] VITALS: BP 96/66; PULSE 85; PULSE 86; RESP 16; TEMP 35.9; O2SAT 99
[2025-06-27] MEDS: THIAMINE INJ 500 MG in SODIUM CHLORIDE 0.9% 100 ML 210 MG IV (05:05)
[2025-06-27 06:05] LABS: Basophils # (Auto) 0.0 Thou/mm3 (0.0-0.2); Basophils % (Auto) 1 % (0-2.5); Eosinophils # (Auto) 0.1 Thou/mm3 (0.0-0.5); Eosinophils % (Auto) 4 % (0-10); Hematocrit 33.8 % (41.0-53.0); Hemoglobin 11.4 g/dL (13.5-16.0); Immature Granulocytes Auto 0.04 Thou/mm3 (0.00-0.00); Lymphocytes # (Auto) 1.0 Thou/mm3 (1.0-4.8); Lymphocytes % (Auto) 31 % (10-50); Mean Corpuscular HGB Conc 33.7 g/dl (31.0-37.0); Mean Corpuscular Hemoglobin 32.6 pg (25.0-35.0); Mean Corpuscular Volume 97 fL (80-100); Monocytes # (Auto) 0.8 Thou/mm3 (0.0-0.8); Monocytes % (Auto) 26 % (0-12); Neutrophils # (Auto) 1.2 Thou/mm3 (1.8-7.7); Neutrophils % (Auto) 37 % (37-80); Nucleated Red Blood Cell # 0.00 Thou/mm3 (0.00-0.00); Nucleated Red Blood Cell % 0 /100 WBC (0); Platelet Count 203 Thou/mm3 (140-440); RDW Standard Deviation 59.7 fL (35.1-43.9); Red Blood Count 3.50 Miln/mm3 (4.50-5.90); White Blood Count 3.3 Thou/mm3 (3.8-10.6)
[2025-06-27 06:29] LABS: Alanine Aminotransferase 52 U/L (10-49); Albumin, Serum 3.2 gm/dL (3.5-5.0); Albumin/Globulin Ratio 1.3 (1.2-2.2); Alkaline Phosphatase 89 U/L (46-116); Anion Gap 10 (7-16); Aspartate Amino Transferase 44 U/L (0-34); BUN/Creatinine Ratio 8 Ratio (12-20); Bilirubin,Total 0.3 mg/dL (0.3-1.2); Blood Urea Nitrogen 5 mg/dL (9-23); Calcium 8.1 mg/dL (8.3-10.6); Calcium (Corrected) 8.7 mg/dL (8.5-10.1); Carbon Dioxide 27.1 mMol/L (20.0-31.0); Chloride 100 mMol/L (98-107); Creatinine (Component) 0.6 mg/dL (0.6-1.3); Estimated Creatinine Clearance 111.4 mL/min (>60); Globulin 2.4 gm/dL (2.3-3.5); Glucose 70 mg/dL (74-106); Magnesium 1.7 mg/dL (1.6-2.6); Osmolality,Calculated 269 (275-295); Phosphorous 2.9 mg/dL (2.4-5.1); Potassium 4.0 mMol/L (3.4-5.1); Sodium 137 mMol/L (136-145); Total Protein 5.6 gm/dL (5.7-8.2); eGFR > 60 See Note
[2025-06-27 08:00] VITALS: BP 126/81; PULSE 77; PULSE 92; RESP 16; TEMP 36.1; O2SAT 97
[2025-06-27] MEDS: HEPARIN SOD INJ 5000 UNIT/ML VIAL SC (08:45)
[2025-06-27] MEDS: Magnesium Sulfate 2 GM Ivpb 2 GM/50 ML BAG IV (08:45)
[2025-06-27] MEDS: MULTIVITAMINS TABLET 1 TAB PO (08:45)
[2025-06-27] MEDS: BALSAM PERU/CASTOR OIL (Venelex) 60 GM TUBE TOP (08:46)
[2025-06-27 11:58] VITALS: BP 109/69; PULSE 101; RESP 18; TEMP 36; O2SAT 96
[2025-06-27 12:00] VITALS: PULSE 107
--- NOTE | 2025-06-27 14:26 | PC.PT ---
Patient is safe to ambulate to the bathroom with a FWW and 1 staff assist. RN made aware.
--- NOTE | 2025-06-27 14:30 | ESDS_ITS ---
Planned Discharge Date 06/27/25 DS: Providers Provider Date of admission: 06/25/25 10:54 Primary care physician: Physician No Primary/Family Admitting Provider: Max Pascual MD Attending Provider on Admission: Max Pascual MD Consults: 06/21/25 14:48 [facility] Referral - Knowledge Deficit Routine Comment: Positive screening for knowledge deficit needs. Instructions: alcohol use 06/21/25 14:53 Referral Wound Care Routine Comment: 06/24/25 16:20 Referral Physical Therapy Routine Comment: Physician Instructions: Instructions: unsteady gait, currently in withdrawal, ambulates independently at baseline per patient Attending Provider on DC: Julien Perry DO Discharging Provider: Julien Perry DO DS: Diagnosis Problem List Completed Was Problem List Reviewed/Reconciled?: Yes Hospital Course Hospital Course Hospital course: Mr. dasilva is a 49-year-old gentleman with history of alcohol abuse presents to the emergency department with alcohol intoxication on 06/21/25. He was brought in due to public disturbance. He states that he has never been in the hospital for alcohol-related seizures. He states that he had an additional $900 because he had not yet paid bills and went into a 5 to 6-day binge drinking session. He endorses drinking several beers over the past few days before admision. Last drink was a few hours before presenting to the ED. Physical exam was positive for bilateral tremors and unsteady gait. Patient's labs significant for urine alcohol level of 588 (downtrended to 196) with low potassium of 2.9. Patient was given Valium in the ED along with potassium and fluid resuscitation. He was admitted for further management of hypokalemia and alcohol withdrawal. Started on CIWA. Withdrawl symptoms were worsening during hospitalization requiring closer management and more frequent ministration of Librium, Valium, Ativan. Therefore he was upgraded to ICU on 06/23 for closer monitoring as there was concern for possible seizure. While in the ICU he was receiving scheduled doses of phenobarbital with diazepam for breakthrough agitation. Downgraded subsequent day for continuation of care. CIWA score improved from 20 to 3?4. He remained slightly confused however family stated that this is baseline. Phenobarbital was slowly weaned. Patient was counseled extensively on drinking cessation. He appeared to agree quitting. He should continue daily thiamine and folic acid for supplement. Discharge instructions: Please start taking Thiamine and Folate daily. Please stop drinking Alcohol, and use your resources you received in the hospital to get additional help. Please go see your PCP in 1 week. Please return to the ED if your symptoms worsen Comience a bright tiamina y folato a diario. Deje de beber alcohol y utilice los recursos que recibi? en el hospital para obtener ayuda adicional. Visite a hsieh m?dico de cabecera en june semana. Regrese a urgencias si shahana s?ntomas empeoran. Hospital diagnoses: #EtOH withdrawl #Transaminitis 2/2 ETOH use #EtOH use disorder #electrolyte abnormalities #normocytic anemia #HLD #thrombocytopenia The patient's management plan was discussed with my attending physician Dr. Perry. Sindy Navarro MD, PGY-2 Time Spent with Patient Time attestation: Total time spent providing and/or coordinating discharge services: Time spent: Greater than 30 minutes Exam Vital Signs Temp Pulse Resp BP Pulse Ox O2 Del Method O2 Flow Rate 96.8 F 107 H 18 109/69 96 Room Air 1 06/27/25 11:58 06/27/25 12:00 06/27/25 11:58 06/27/25 11:58 06/27/25 11:58 06/27/25 11:58 06/25/25 12:00 Narrative Exam Gen: Well-developed male. alert and oriented x3 HEENT: NCAT, PERRLA, EOMI, MMM, anicteric conjunctivae. CVS: normal S1 and S2. RRR. No M/R/G. Resp: CTA B/L. No rhonchi, rales, crackles or wheezing. Abd: soft, non-tender, non-distended. BS+ in all 4 quadrants. MSK: Good ROM in BUE & BLE. No edema or rash. Neuro: is awake, non tremulous no tongue wag, spontaneously moving all 4 extrem Discharge Plan Plan Patient Disposition: HOME (Self Care) Patient condition on transfer: Stable Prescriptions/Referrals Prescriptions/Med Rec: New thiamine HCl (vitamin B1) 100 mg capsule 100 mg PO QDAY Qty: 30 0RF folic acid 1 mg tablet 1 mg PO QDAY Qty: 30 0RF Referrals: No Primary/Family,Physician [Primary Care Provider] Patient/Caregiver Discharge Instructions Other Discharge Diet Instructions: Please start taking Thiamine and Folate daily. Please stop drinking Alcohol, and use your resources you received in the hospital to get additional help. Please go see your PCP in 1 week. Please return to the ED if your symptoms worsen Comience a bright tiamina y folato a diario. Deje de beber alcohol y utilice los recursos que recibi? en el hospital para obtener ayuda adicional. Visite a hsieh m?dico de cabecera en june semana. Regrese a urgencias si shahana s?ntomas empeoran. Education Materials: Social Drinking vs Problem Drinking, ED Alcohol Intoxication Print Language: Georgian Stand Alone Forms: Ramya Award Info., Patient Portal Info Letter Discharge Order Discharge Orders: Discharge (Routine); Ordered 06/27/25 Ordered By: Sindy Navarro Quality Discharge Quality Measures VTE prophylaxis Attestestation MD Attestation I have discussed and was present for the essential components of the discharge history, physical examination, diagnosis, and discharge treatment plan with the resident. I agree with the patient's discharge care as documented by the resident and amended herein by me. Naresh Perry DO. The patient understood all discharge instructions, all questions were answered satisfactorily. The patient was instructed to return to the Emergency Department is symptoms worsened or persisted. Patient was stable, afebrile, tolerating p.o. intake and ambulatory at time of discharge home. We strenuously counseled patient on the necessity of alcohol cessation and he understood. Although this document has been carefully reviewed, there may still be some phonetic and other typographical errors. These errors are purely grammatical due to imperfections in the software program and should not be construed in any way to compromise the substance of the patient's medical care during this visit.
== END 2025-06-27 14:17 | disposition home or self-care (01) | DRG 775 ==
LOC: SERX 06-21 06:14 → SERHOLD 06-21 10:15 → S3SX 06-22 08:14 → S2SX 06-23 19:43 → S2NX 06-24 12:15
PROVIDERS: Emergency Medicine; Student in an Organized Health Care Education/Training Program; Admitting Provider Student in an Organized Health Care Education/Training Program; Emergency Provider Emergency Medicine; Visit Provider Student in an Organized Health Care Education/Training Program
DX: F10.229 Alcohol dependence with intoxication, unspecified (principal); F10.239 Alcohol dependence with withdrawal, unspecified; Y90.8 Blood alcohol level of 240 mg/100 ml or more; E87.6 Hypokalemia; E87.1 Hypo-osmolality and hyponatremia
CPT/HCPCS: 36415; 80048; 80053; 80061; 80069; 80307; 80320; 81001; 82150; 82247; 82607; 82728; 83540; 83550; 83690; 83735; 84100; 84484; 85025; 85610; 85730; 93005; 96361; 96365; 96375; 97162; 99285; A4216; G0378; J1644; J2405; J2470; J2560; J2765; J3360; J3411; J3475; J3480; J7030; J7050; J7120; A9270; G0480

== ENCOUNTER 2025-06-29 05:32 | Emergency (ER) | payer MEDICAID, SELFPAY ==
[2025-06-29 05:33] VITALS: PULSE 99; RESP 16; O2SAT 99; BMI 23.0
[2025-06-29 05:44] VITALS: BP 154/77; PULSE 113; RESP 18; TEMP 37.2; O2SAT 97
--- NOTE | 2025-06-29 05:52 | XR_ITS ---
Examination: CT lumbar spine, without contrast. 2-D sagittal reconstructions. 2-D coronal reconstructions. 3-D reconstructions. Date and time of exam:June 29, 2025 0625 hrs. Indications: Patient fell 5 days ago with injury to lower back, lower back pain. CTDI: vol (mGy):14.5 DLP: (mGycm):534. Technique: Multiple 1.25 mm axial sections of the lumbar spine without intravenous contrast. have been obtained. 2-D sagittal and coronal reconstructions have been obtained. 3-D reconstructions have been obtained. Low dose protocols were performed. One or more of the following dose reduction techniques were used; automated exposure control, adjustment of the mA and/or KV according to patient size, use of iterative reconstruction technique. Findings: Satisfactory alignment lumbar vertebral bodies. No lumbar fracture. Minimal disc narrowing L5-S1. Lumbar pedicles, laminae, transverse and posterior spinous processes are intact. L5-S1 5 mm central lumbar disc bulge contiguous with the right and left S1 nerve roots L4-L5 4 mm central lumbar disc bulge Impression: No lumbar fracture. L5-S1 5 mm central lumbar disc bulge contiguous with the right and left S1 nerve roots. L4-L5 4 mm central lumbar disc bulge
--- NOTE | 2025-06-29 05:53 | PD.EDRME ---
Rapid Medical Screening Exam [facility] Arrival date/time: 06/29/25 05:32 49M with history of alcohol use presents to ED with low back/tailbone pain after slip and fall 5 days ago. Chief Complaint: Back Pain/Injury Vital signs: Vital Signs Temperature 99.0 F 06/29/25 05:44 Pulse Rate 113 H 06/29/25 05:44 Respiratory Rate 18 06/29/25 05:44 Blood Pressure 154/77 H 06/29/25 05:44 Pulse Oximetry (%) 97 06/29/25 05:44 Oxygen Delivery Method Room Air 06/29/25 05:44
--- NOTE | 2025-06-29 07:30 | PD.EDBACK ---
ED Back Injury Pain RME/HPI General Chief Complaint: Back Pain/Injury Stated Complaint: LOWER BACK PAIN AFTER X5DAYS Time Seen by Provider: 06/29/25 06:12 Arrival date/time: 06/29/25 05:32 49M with history of alcohol use presents to ED with low back/tailbone pain after slip and fall 5 days ago. Limitations: no limitations RME / HPI RME / HPI Narrative: 06/29/25 05:32 49M with history of alcohol use presents to ED with low back/tailbone pain after slip and fall 5 days ago. Related Data Previous Rx's ?Medication ?Instructions ?Recorded folic acid 1 mg tablet 1 mg PO QDAY #30 tabs 06/27/25 thiamine HCl (vitamin B1) 100 mg 100 mg PO QDAY #30 caps 06/27/25 capsule cyclobenzaprine 10 mg tablet 10 mg PO TID PRN muscle spasm 10 06/29/25 days #30 tab-caps ibuprofen 600 mg tablet 600 mg PO Q6H #30 tabs 06/29/25 Allergies Allergy/AdvReac Type Severity Reaction Status Date / Time No Known Allergies Allergy Unverified 06/21/25 09:14 Review of Systems Review of Systems Systems Reviewed: All systems reviewed, normal except as documented Constitutional Constitutional: Reports system reviewed and no additional complaints, except as documented, Denies fever(s) and Denies headache(s) Eyes Eyes: Reports system reviewed and no additional complaints, except as documented and Denies blurry vision ENT Ears, Nose, Mouth, and Throat: Reports system reviewed and no additional complaints, except as documented, Denies headache(s), Denies nasal congestion and Denies nasal discharge Cardiovascular Cardiovascular: Reports system reviewed and no additional complaints, except as documented, Denies chest pain and Denies dyspnea Respiratory Respiratory: Reports system reviewed and no additional complaints, except as documented, Denies chest congestion, Denies cough and Denies dyspnea Gastrointestinal Gastrointestinal: Reports system reviewed and no additional complaints, except as documented and Denies abdominal pain Musculoskeletal Musculoskeletal: Reports system reviewed and no additional complaints, except as documented and Reports back pain Integumentary/Breasts Skin/Breast: Reports system reviewed and no additional complaints, except as documented and Denies rash Neurologic Neurologic: Reports system reviewed and no additional complaints, except as documented, Reports as per HPI and Denies headache(s) Past Medical History Past Medical History NEUROLOGIC: Negative Neurological Disorders, Cerebrovascular Accident, Transient Ischemic Attacks (TIA), Dementia, Alzheimer's Disease, Parkinson's Disease, Brain Tumor, Meningitis, Seizures, Epilepsy, Multiple Sclerosis, Cerebral Palsy, Amyotrophic Lateral Sclerosis (ALS/Corazon Gehrig's), Guillain-[place]innston Syndrome, Spina Bifida, Paralysis, Peripheral Neuropathy, Marks's Palsy, Subdural Hematoma, Migraine, Head Trauma, Spinal Cord Injury or Traumatic Brain Injury CARDIAC: Negative Cardiac Disorders, Myocardial Infarction, Cardiac Arrhythmia, Atrial Fibrillation, Angina, Heart Murmur, Coronary Artery Disease, Atherosclerotic Heart Disease, Peripheral Vascular Disease, Hypercholesterolemia, Aneurysm, Congestive Heart Failure, Congenital Heart Disease, Valvular Heart Disease, Rheumatic Fever, Cardiomyopathy, Edema, Pericarditis, Cellulitis, Deep Vein Thrombosis, Hypertension, Hypotension or Varicose Veins RESPIRATORY: Negative Chronic Obstructive Pulmonary Disease (COPD), Asthma, Bronchitis, Emphysema, Pneumonia, Pulmonary Fibrosis, Cystic Fibrosis, Tuberculosis, Pulmonary Embolism, Pulmonary Edema or Sleep Apnea GASTROINTESTINAL: Negative Gastrointestinal Disorders, Hepatitis, Cirrhosis, Pancreatitis, Celiac Disease, Gall Bladder Disease, Gastrointestinal Bleed, Esophageal Varices, Valerio's Esophagus, Colitis, Ulcerative Colitis, Diverticulitis, Diverticulosis, Ulcer, Colorectal Cancer, Irritable Bowel, Crohn's Disease, Obstructive Bowel, Hiatal Hernia, Hemorrhoids, Gastroesophageal Reflux Disease or Obesity GENITOURINARY: Negative Genitourinary Disorders, Renal Disease, Kidney Stones, Polycystic Kidney Disease, Neurogenic Bladder, Inguinal Hernia, Dialysis, Prostate Cancer or Benign Prostatic Hyperplasia REPRODUCTIVE: Negative Breast Cancer, Fibroids, Genital Herpes, Gonorrhea, Syphilis or Testicular Cancer MUSCULOSKELETAL: Negative Musculoskeletal Disorders, Muscular Dystrophy, Myasthenia Gravis, Marfan's Syndrome, Bone Cancer, Arthritis, Rheumatoid Arthritis, Osteoporosis, Degenerative Disk Disease, Gout, Scoliosis, Carpal Tunnel Syndrome, Fibromyalgia, Fractures, Degenerative Joint Disease, Osteomyelitis or Poliovirus ENT: Negative Cataracts, Glaucoma, Blind, Retinal Detachment, Macular Degeneration, Ear Infection, Deafness, Head Trauma or Eye Prosthesis ENDOCRINE: Negative Endocrine Disorders, Diabetes Mellitus Type 1, Diabetes Mellitus Type 2, Hypoglycemia, [place]'s Syndrome, Slope's Disease, Hyperthyroidism, Hypothyroidism, Parathyroid Disease, Pituitary Disease, Systemic Lupus Erythematosus, Syndrome of Inappropriate Antidiuretic Hormone (SIADH), Adrenal Disease or Graves' Disease HEMATOLOGIC: Negative Blood Disorders, Anemia, Leukemia, Hemophilia, Thalassemia, Sickle Cell Disease or Clotting Problems PSYCHO/SOCIAL: Positive Depression; Negative Psychiatric Problems, Schizophrenia, Recreational Drug Use, Bipolar Disorder, Anxiety, Behavior Problems, Self-Mutilation, Attention Deficit Disorder, Attention Deficit Hyperactivity Disorder, Depression, Post Traumatic Stress Disorder or Eating Disorder OTHER HISTORY: Positive Falls (last fall on 06/12); Negative Hospitalization, Autoimmune Disease, Down Syndrome, Autism, Developmental Delay, Shingles, Blood Transfusions, Blood Transfusion Reaction, Anesthesia Reactions, Organ Transplant, Chemotherapy, Radiation Therapy, Hyperbaric Therapy, MRSA, VRSA, Vancomycin-Resistant Enterococci, Human Immunodeficiency Virus (HIV), Chicken Pox, Measles, Mumps, Clostridium Difficile, Cancer, Breast Cancer, Colorectal Cancer, Lung Cancer, Prostate Cancer or Testicular Cancer Family History FAMILY HISTORY: Negative Family Psychiatric Problems, Family Respiratory Disorders, Family Cardiac Disorders, Family Gastrointestinal Problems, Family Cancer, Family Surgery or Family Anesthesia Reaction Surgical History SURGICAL: Negative Cardiac Surgery, Open Heart Surgery, Coronary Artery Bypass Graft, Valve Replacement, Vascular Surgery, Coronary Stent, Cardiac Catheterization, Pacemaker, Angiogram, Auto Implanted Cardiovert Defib, Carotid Endarterectomy, Endocrine Surgery, Thyroidectomy, Ear Surgery, Tympanostomy Tube, Eye Surgery, Nose Surgery, Oral Surgery, Tonsillectomy, Adenoidectomy, Cochlear Implant, Corneal Transplant, Throat Surgery, Abdominal Surgery, Tracheostomy, Gastric Bypass Surgery, Gastrostomy, Bowel Surgery, Nephrectomy, Transurethral Resection, Joint Replacement, Amputation, Open Reduction Internal Fixation, Arthroscopy, Neurologic Surgery, Brain Shunt, Mastectomy, Vasectomy or Organ Transplant Social History SMOKING STATUS: Never smoker ED Exam General Limitations: Present no limitations General appearance: Present alert and in no apparent distress Head Head exam: Present atraumatic, normocephalic and normal inspection Eye Eye exam: Present normal appearance, PERRL and EOMI; Absent conjunctival injection ENT ENT exam: Present normal exam, normal oropharynx and mucous membranes moist Neck Neck exam: Present normal inspection, full ROM and trachea midline Chest Chest inspection: Present normal inspection and symmetric chest wall rise Respiratory Respiratory exam: Present normal lung sounds bilaterally; Absent respiratory distress Cardiovascular Cardiovascular exam: Present regular rate, normal rhythm and normal heart sounds Abdominal Exam Abdominal exam: Present soft and normal bowel sounds; Absent distention, tenderness, guarding, rebound or rigidity Extremities Exam Extremities exam: Present normal inspection and full ROM Back Exam Back exam: Present normal inspection, full ROM, tenderness, muscle spasm and paraspinal tenderness; Absent CVA tenderness (R) or CVA tenderness (L) Neurological Exam Neurological exam: Present alert, oriented X3 and CN II-XII intact Psychiatric Psychiatric exam: Present normal affect and normal mood Skin Skin exam: Present warm, dry, intact and normal color Course Quality Measures none Orders Category Date Time Status CT lumbar spine wo con Stat Exams 06/29/25 05:52 Completed Vital Signs Vital signs: Vital Signs Temperature 99.0 F 06/29/25 05:44 Pulse Rate 113 H 06/29/25 05:44 Respiratory Rate 18 06/29/25 05:44 Blood Pressure 154/77 H 06/29/25 05:44 Pulse Oximetry (%) 97 06/29/25 05:44 Oxygen Delivery Method Room Air 06/29/25 05:44 O2 saturation 97% room air with normal limits Back Pain / Injury MDM Narrative MDM Narrative:: 49M with history of alcohol use presents to ED with low back/tailbone pain after slip and fall 5 days ago. On exam patient well-appearing patient is not appear toxic patient reports no head or neck injury patient reports no other injuries patient reports pain to lower back Patient walks with steady gait has no abnormal neurological findings no saddle anesthesia no loss of bowel or bladder Imaging obtained no acute fracture noted Patient be discharged home with pain medication Patient discharged home in no distress to follow-up with primary care doctor in the next 24 to 48 hours and for any worsening symptoms to return to the ER immediately Patient data External records reviewed:: [facility] previous records Clinical information provided by:: patient Social determinants that could affect healthcare access:: alcohol use Patient has the following chronic illnesses:: History How is presenting disease/condition affected by chronic disease/condition?: uneffected by Evaluation data The following diagnostics were reviewed and interpreted by me:: radiology exam(s) Lab and/or radiology exams considered but not ordered:: Radiology obtain Interpretation Summary: Reviewed by me Medications / Prescriptions Medications or Prescriptions considered but not ordered:: Given Medication administrations:: Given Consultations Consultation(s) initiated? (list below): No Diagnosis Differential diagnosis back pain/injury: lumbar radiculopathy and strain of lumbar region Most likely diagnosis given after review of the tests above:: Back pain Admission Indicated Admission indicated?: not indicated Admission Request Was there a request for admission?: No Disposition Plan Disposition Plan: Discharge Discharge Attestation Discharge Attestation: The patient and all family members were given an opportunity to ask questions and understood the discharge instructions. Discharge instructions specifically effects, indications for sooner follow up or return to the emergency department, and the expected course of current diagnosis. Patient condition: Stable Discharge Plan Plan Patient Disposition: HOME (Self Care) Discharge Disposition comment: Stable Prescriptions/Referrals Prescriptions/Med Rec: New cyclobenzaprine 10 mg tablet 10 mg PO TID PRN (Reason: muscle spasm) 10 Days Qty: 30 0RF ibuprofen 600 mg tablet 600 mg PO Q6H Qty: 30 0RF No Action thiamine HCl (vitamin B1) 100 mg capsule 100 mg PO QDAY Qty: 30 0RF folic acid 1 mg tablet 1 mg PO QDAY Qty: 30 0RF Referrals: Temporary Provider,ED [Physician, Emergency Medicine] - 06/30/25 Problem List Clinical Impression: Lumbar radiculopathy Patient/Caregiver Discharge Instructions Education Materials: Anatomy of a Normal Spine Additional Instructions: Please follow up with your primary care doctor in the next 24-48hrs for any worsening symptoms return here immediately Print Language: Ivorian Stand Alone Forms: Ramya Award Info., Patient Portal Info Letter PA/[employer] CONSULTANT Supervising Physician PA/[employer] CONSULTANT Supervising Physician: Dr. burroughs
== END 2025-06-29 07:55 | disposition home or self-care (01) ==
PROVIDERS: Emergency Provider Physician Assistant; PCP Family Medicine
DX: M54.16 Radiculopathy, lumbar region (principal)
CPT/HCPCS: 72131; 99283